=== PATIENT | female | born 1940 | race Caucasian/White ===

== ENCOUNTER 2019-02-19 11:59 | Inpatient (IN) ==
[2019-02-19] MEDS ORDERED: fentaNYL citrate 100 MCG/2 ML VIAL IV STA (12:22)
[2019-02-19 12:36] LABS: Basophils # (auto) 0.02 K/uL (0-0.2); Basophils % (auto) 0.2 %; Eosinophils # (auto) 0.21 K/uL (0-0.5); Eosinophils % (auto) 1.8 %; Hematocrit (blood only) 38.8 % (37-47); Hemoglobin 12.8 g/dL (12.0-16.0); Immature Granulocytes # (auto) 0.03 K/uL (0.00-0.02); Immature Granulocytes % (auto) 0.3 %; Lymphocytes # (auto) 4.77 K/uL (1.2-3.4); Lymphocytes % (auto) 39.8 %; Mean Corpuscular Volume 91.1 fL (80-100); Mean Platelet Volume 9.8 fL (7.4-10.4); Monocytes # (auto) 0.68 K/uL (0.11-0.59); Monocytes % (auto) 5.7 %; Neutrophils # (auto) 6.26 K/uL (1.4-6.5); Neutrophils % (auto) 52.2 %; Platelet Count 246 K/uL (130-400); RDW Coefficient of Variation 13.7 % (11.5-14.5); Red Blood Count 4.26 M/uL (4.2-5.4); White Blood Count 11.97 K/uL (4.8-10.8)
[2019-02-19 12:45] LABS: INR 3.3 (0.9-1.1); Prothrombin Time 31.2 Seconds (9.0-12.0)
[2019-02-19 12:55] LABS: Albumin Level 3.5 gm/dl (3.4-5.0); BUN Creatinine Ratio 13.6 (10-20); Calcium 9.3 mg/dl (8.5-10.1); Creatinine Clr Calc Pharmacy 36.3 ml/min; Est GFR (African American) 49.6; Est GFR (Non-African American) 42.8; Potassium 3.6 mmol/L (3.5-5.1)
[2019-02-19 12:58] LABS: Albumin Globulin Ratio 0.9 (0.9-2); Bilirubin,Total 0.6 mg/dl (0.2-1); Globulin 3.9 gm/dl (2.5-4.0); Total Protein 7.4 gm/dl (6.4-8.2)
--- NOTE | 2019-02-19 13:08 | CT Scan Report ---
CT head/brain wo con CLINICAL HISTORY: 78 years-old Female presenting with fall. TECHNIQUE: Multidetector CT imaging of the head was performed without the use of intravenous contrast . IV contrast: None. One or more dose lowering techniques were used consistent with the principles of ALARA (as low as reasonably achievable), including automatic exposure control, mA or kV adjustment t o individual patient size, and/or use of iterative reconstruction. COMPARISON: None. CT DOSE (mGy.cm): The estimated cumulative dose is 883.84. FINDINGS: Precast Worker topogram: Unremarkable. Ventricles and sulci normal in size. No hemorrhage. Brain parenchyma normal in appearance with preser andrey villar-white differentiation. No acute territorial infarct. No mass effect or midline shift. No ext ra-axial fluid collection. Paranasal sinuses and mastoid air cells clear. Calvarium intact. IMPRESSION: 1. No acute intracranial abnormality. ACT 112: Negative or not required by law. Electronically signed by: Raheel Quiñones M.D. 02/19/2019 1:06 PM
--- NOTE | 2019-02-19 13:10 | CT Scan Report ---
CT cervical spine wo con CT DOSE: 883.84 mGy.cm HISTORY: Trauma fall TECHNIQUE: Multiaxial CT images of the cervical spine were performed and reformatted in the sagittal and coronal plane without the use of contrast. A dose lowering technique was utilized adhering to th e principles of ALARA. COMPARISON: None. FINDINGS: No fractures. No subluxation. Prevertebral soft tissues and the C1-C2 interval are intact. No pneumothorax. Degenerative changes are noted throughout. IMPRESSION: No fractures within the cervical spine. Degenerative change. ACT 112: Negative or not required by law. The above report was generated using voice recognition software. It may contain grammatical, syntax or spelling errors. Electronically signed by: Davis Gallo M.D. 02/19/2019 1:08 PM
--- NOTE | 2019-02-19 13:35 | XRay Report ---
XR pelvis 1-2V routine CLINICAL HISTORY: Left hip pain status post trauma COMPARISON: None. DISCUSSION: There is a displaced comminuted intertrochanteric left hip fracture. The femoral shaft is displaced medially by one full shaft width with respect to the femoral neck. IMPRESSION: Displaced intertrochanteric left hip fracture. ACT 112: Negative or not required by law. Electronically signed by: Isidro Macias M.D. 02/19/2019 1:34 PM
--- NOTE | 2019-02-19 13:35 | XRay Report ---
XR chest 1V portable CLINICAL HISTORY: 78 years-old Female presenting with fall. TECHNIQUE: Portable upright AP view of the chest was obtained. COMPARISON: 11/08/2015. FINDINGS: Atherosclerosis of the aortic arch. Cardiac silhouette enlarged. Lungs may be mildly hyperinflated. N o focal opacity. No large effusion or pneumothorax. Osteopenia may be present. No gross evidence of a n acute osseous injury. Large hiatal hernia. IMPRESSION: 1. Cardiomegaly. No other convincing evidence of acute cardiopulmonary disease. ACT 112: Negative or not required by law. Electronically signed by: Raheel Quiñones M.D. 02/19/2019 1:34 PM
--- NOTE | 2019-02-19 13:38 | XRay Report ---
XR femur LT 2V routine CLINICAL HISTORY: 78 years-old Female presenting with fall, ?frx. TECHNIQUE: Frontal and lateral views of the left femur were obtained. COMPARISON: None. FINDINGS: Mildly comminuted fracture of the left femur predominately in a subtrochanteric location, however, th ere is involvement of the lesser trochanter. The proximal fracture fragment consists of the left femo ral head, neck, and greater trochanter as well as the lateral cortex of the proximal metaphysis. Иван ical fracture fragments may be present within the fracture plane. There is 1 shaft width medial displ acement of the femoral diaphysis. There is also possible minimal foreshortening. Coxa varus angulatio n. Visualized portion of bony pelvis intact. Knee joint intact. Degenerative changes of the knee. Und erlying osteopenia suspected. Atherosclerosis. IMPRESSION: Significantly displaced and mildly comminuted subtrochanteric left femur fracture. ACT 112: Negative or not required by law. Electronically signed by: Raheel Quiñones M.D. 02/19/2019 1:37 PM
--- NOTE | 2019-02-19 14:43 | Communication Note ---
Date of Service: February 19, 2019 HISTORY: Record reviewed. Patient interviewed and examined in ED around 1500. Care coordinated with Joann Tineo PA-C. Please refer to her documentation for complete history. Briefly, 78 YO F with history of chronic atrial fibrillation, diastolic CHF, CKD, and other problems. She slipped on ice today while trying to get into her car and experienced severe left pain. Brought to ED for evaluation where she was found to have a fracture of her left hip. EXAM: General- VS-temp 36.8, pulse 96, respirations 18, BP 165/111 (at 1224) Lungs- clear to auscultation; no respiratory distress Cardiovascular- irregular; no murmur appreciated; no gallop; no JVD; no pretibial edema Abdomen- + bowel sounds, soft, nontender Extremities- LLE shortened and externally rotated; hip pain with flexion or rotation; no cyanosis; no calf tenderness Neuro- alert, Skin- warm & dry DATA: Hemoglobin 12.8, white count 11,970, platelet count 246,000. INR 3.3. Normal electrolytes, BUN 16, creatinine 1.21, random glucose 139. Digoxin level 0.7. Other lab studies as noted. Chest x-ray reviewed by the undersigned and formally interpreted by Radiology- cardiomegaly, large hiatal hernia, no acute process. X-rays of pelvis and left femur demonstrated displaced intertrochanteric fracture of the left hip. CT of head- unremarkable. CT of cervical spine- no fractures or subluxation. EKG performed at 1233 reviewed and demonstrated atrial flutter with variable conduction at 90 / minute, nonspecific T wave abnormalities. ASSESSMENT AND PLAN: LEFT HIP FRACTURE Status post mechanical fall with displaced intertorchanteric frature. Management per Geriatric Hip Fracture protocol. ATRIAL FIBRILLATION / FLUTTER Continue metoprolol and digoxin for rate control. Reverse warfarin with vitamin K. Resume anticoagulation postoperatively when safe from surgical perspective. DIASTOLIC CHF Compensated radiographically. Follow exam / fluid status. Titrate diuretic therapy as needed. HIATAL HERNIA Large hiatal hernia. Continue PPI. Elevate head of bed. Please refer to ILEANA Tineo's documentation for discussion of other issues.
[2019-02-19] MEDS ORDERED: PHYTONADIONE 5 MG TAB PO STA (15:10)
[2019-02-19] MEDS ORDERED: ONDANSETRON INJ 2 MG/ML 2 ML VIAL IV PRN (15:10)
[2019-02-19] MEDS ORDERED: LORATADINE 10 MG TAB PO PRN (15:11)
--- NOTE | 2019-02-19 15:11 | History & Physical Report ---
Date of Service February 19, 2019 Assessment & Plan (1) Fall: (2) Closed left hip fracture: This is a 78-year-old female with a PMH of chronic diastolic heart failure, persistent atrial fibrillation on anticoagulation, CKD III and other medical problems listed below who presents from home after a fall and was found to have a left femur fracture. -S/p mechanical fall slipping on ice, femur XR with evidence of significantly displaced and mildly comminuted subtrochanteric left femur fracture -[facility] orthopedics consulted as well as anesthesiology. Pain control, IV fluids, preop antibiotics ordered per protocol. Traction ordered. NPO at midnight -INR supratherapeutic at 3.3- last dose taken yesterday at 1600. Given 2.5mg PO Vitamin K for reversal with INR recheck this evening at 2100 -Pre-op: history of persistent A fib - currently rate controlled at 85 bpm, CXR with cardiomegaly, no acute changes -Per revised cardiac risk index for pre-op risk, patient with class II risk - 6% of major cardiac event (3) CHI (closed head injury): Does not remember whether or not she hit her head but felt that patient was briefly confused following fall -CT head, cervical spine CT without acute abnormalities -Currently A&O x4. Monitor closely, neuro checks (4) Persistent atrial fibrillation: Rate controlled with HR of 85 -Continue Toprol, digoxin -Holding coumadin in setting of supratherapeutic INR pre-operatively. Trend INR (5) Chronic diastolic heart failure: Appears euvolemic clinically, on CXR -Monitor volume status closely -Home diuretics schedule of Lasix 20mg Q2D - due tomorrow but will plan to hold pre-operatively (6) Hiatal hernia: Continue protonix 40mg BID, elevate head of bed DVT Ppx: Holding coumadin preoperatively. SCDs Code status: FULL PCP: Leonel García Dispo: Admitted to PCU. Discharge planning ordered. Patient seen in collaboration with Dr. Marcelino. Please see addendum. History of Present Illness Chief Complaint: Fall, left hip pain Primary Care Provider: NO PCP This is a 78-year-old female with a PMH of chronic diastolic heart failure, persistent atrial fibrillation on anticoagulation, CKD III and other medical problems listed below who presents from home after a fall. Patient was walking to her car in the driveway when she slipped and fell on the ice, landing on her left side. Is not sure if she hit her head or not but did not lose consciousness. Was unable to get anyone's attention so she crawled to her front door and rang the doorbell and her called EMS. Patient states the pain is severe with any type of movement but minimal at rest. Denies any numbness or paresthesias distal to area of pain in left upper leg/hip. Denies any fever, chills, lightheadedness, visual changes, chest pain, palpitations, shortness of breath, nausea, vomiting, abdominal pain, dysuria, diarrhea or constipation. Is on Coumadin for persistent atrial fibrillation, last taken yesterday around 1600. In ED, patient found to be hypertensive initially with BP 165/117. CT head, cervical spine CT without acute abnormalities. CXR with cardiomegaly. Left femur x-ray with significantly displaced and mildly comminuted subtrochanteric left femur fracture. Denies any previous surgical history. Allergies Allergy/AdvReac Type Severity Reaction Status Date / Time No Known Allergies Allergy Unverified 02/19/19 14:12 Home Medications Home Medications Medication Instructions Recorded Confirmed Type atorvastatin 20 mg PO HS 02/19/19 02/19/19 History digoxin 125 mcg PO MOTUWETHFR@2100 02/19/19 02/19/19 History furosemide 20 mg PO Q2D 02/19/19 02/19/19 History lisinopril 2.5 mg PO QAM 02/19/19 02/19/19 History loratadine [Claritin] 10 mg PO HS PRN 02/19/19 02/19/19 History magnesium oxide 400 mg PO HS 02/19/19 02/19/19 History metoprolol succinate 100 mg PO QAM 02/19/19 02/19/19 History multivit with min-folic acid [One 0.4 mg PO QDL 02/19/19 02/19/19 History Daily Womens 50 Plus] pantoprazole 40 mg PO BID 02/19/19 02/19/19 History potassium chloride [Klor-Con M20] 20 meq PO Q2D 02/19/19 02/19/19 History warfarin 1.25 mg PO SUTUWETHSA@1600 02/19/19 02/19/19 History warfarin 2.5 mg PO MOFR@1600 02/19/19 02/19/19 History Past Med/Surg History Medical History (Updated 02/19/19 @ 17:32 by Joann Tineo PA-C) Chronic diastolic heart failure (Chronic) CKD (chronic kidney disease), stage III Dementia Hiatal hernia (Chronic) Mild aortic regurgitation Mild mitral valve regurgitation Mild tricuspid valve regurgitation Persistent atrial fibrillation (Chronic) Surgical History No pertinent past surgical history Family History Mother Brain cancer Other Atrial fibrillation Social History Preferred Language: Spanish Communication Ability: Effective Beliefs That Will Affect Care: None Current Living Situation: Spouse Other Information That Helps Us Care for You: No Feels Safe at Home: Yes Safety Concerns: Feels Safe At This Time Smoking Status: Former smoker Hx Alcohol Use: No Hx Substance Use: No Review of Systems Review of Systems: At least ten systems reviewed and negative except as noted in the HPI. Physical Exam Physical Exam: General Appearance: WD/WN, vitals as above, NAD, lying in bed, grimacing in pain with any movement, conversing easily Head: normocephalic, atraumatic Eyes: normal inspection, PERRL, conjunctivae normal, anicteric sclerae ENT: external ear and nose normal, oropharynx normal Neck: trachea midline, no thyromegaly normal visual inspection Respiratory: normal respiratory effort, lungs clear to auscultation, no wheeze, rales, rhonchi. Normal insp/exp effort, no accessory muscle use Cardiovascular: irregular rate & rhythm, no murmur appreciated, normal peripheral pulses. Vessels: no JVD or carotid bruit Chest: normal inspection of chest Abdomen/GI: normal bowel sounds, soft, nontender, no hepatosplenomegaly Extremities/Musculoskelatal: + LLE externally rotated and shortened. Tenderness to palpation of lateral left thigh. No cyanosis or clubbing, extremities motor strength 5/5 Neurologic: PERRL, EOMI, accommodation nl, no face palsy, no dysarthria, CN's II-XI intact bilaterally and moves all extremities Psychiatric: A+Ox3, euthymic affect Skin: no rashes, normal color, warm/dry Results & Data Vital Signs (Past 12 Hours) Vital Signs Temp Pulse Resp BP Pulse Ox 02/19/19 12:24 96 02/19/19 12:09 36.8 C 96 H 18 165/111 H 96 Laboratory Results Short CBC 02/19/19 Range/Units 12:18 WBC 11.97 H (4.8-10.8) K/uL Hgb 12.8 (12.0-16.0) g/dL Hct 38.8 (37-47) % Plt Count 246 (130-400) K/uL BMP 02/19/19 12:18 Sodium 140 Potassium 3.6 Chloride 106 Carbon Dioxide 26 BUN 16 Creatinine 1.21 H Glucose 139 H Calcium 9.3 Liver Function 02/19/19 Range/Units 12:18 Total Bilirubin 0.6 (0.2-1) mg/dl AST 19 (15-37) U/L ALT 20 (12-78) U/L Alkaline Phosphatase 129 H (45-117) U/L Albumin 3.5 (3.4-5.0) gm/dl Urine 02/19/19 Range/Units 15:30 Urine Color Yellow Urine Appearance Clear (Clear) Urine pH 7.5 (4.5-7.5) Ur Specific [place] 1.012 (1.000-1.030) Urine Protein Negative (Negative) Urine Glucose (UA) Negative (Negative) Diagnostic Findings CT head: IMPRESSION: 1. No acute intracranial abnormality. Cervical spine CT: IMPRESSION: No fractures within the cervical spine. Degenerative change. CXR: IMPRESSION: 1. Cardiomegaly. No other convincing evidence of acute cardiopulmonary disease. L Femur XR: IMPRESSION: Significantly displaced and mildly comminuted subtrochanteric left femur fracture. Pelvix XR: IMPRESSION: Displaced intertrochanteric left hip fracture. ECG Rhythm: atrial flutter Code Status & VTE Plan VTE Prophylaxis Plan VTE Prophylaxis will be ordered: Yes Supervising Physician Co-Signing Physician Notes HISTORY: Record reviewed. Patient interviewed and examined in ED around 1500. Care coordinated with Joann Tineo PA-C. Please refer to her documentation for complete history. Briefly, 78 YO F with history of chronic atrial fibrillation, diastolic CHF, CKD, and other problems. She slipped on ice today while trying to get into her car and experienced severe left pain. Brought to ED for evaluation where she was found to have a fracture of her left hip. EXAM: General- VS-temp 36.8, pulse 96, respirations 18, BP 165/111 (at 1224) Lungs- clear to auscultation; no respiratory distress Cardiovascular- irregular; no murmur appreciated; no gallop; no JVD; no pretibial edema Abdomen- + bowel sounds, soft, nontender Extremities- LLE shortened and externally rotated; hip pain with flexion or rotation; no cyanosis; no calf tenderness Neuro- alert, Skin- warm & dry DATA: Hemoglobin 12.8, white count 11,970, platelet count 246,000. INR 3.3. Normal electrolytes, BUN 16, creatinine 1.21, random glucose 139. Digoxin level 0.7. Other lab studies as noted. Chest x-ray reviewed by the undersigned and formally interpreted by Radiology- cardiomegaly, large hiatal hernia, no acute process. X-rays of pelvis and left femur demonstrated displaced intertrochanteric fracture of the left hip. CT of head- unremarkable. CT of cervical spine- no fractures or subluxation. EKG performed at 1233 reviewed and demonstrated atrial flutter with variable conduction at 90 / minute, nonspecific T wave abnormalities. ASSESSMENT AND PLAN: LEFT HIP FRACTURE Status post mechanical fall with displaced intertorchanteric frature. Management per Geriatric Hip Fracture protocol. ATRIAL FIBRILLATION / FLUTTER Continue metoprolol and digoxin for rate control. Reverse warfarin with vitamin K. Resume anticoagulation postoperatively when safe from surgical perspective. DIASTOLIC CHF Compensated radiographically. Follow exam / fluid status. Titrate diuretic therapy as needed. HIATAL HERNIA Large hiatal hernia. Continue PPI. Elevate head of bed. Please refer to ILEANA Tineo's documentation for discussion of other issues. (1) CHI (closed head injury) Encounter type: initial encounter Qualified Code(s): S09.90XA - Unspecified injury of head, initial encounter (2) Fall Encounter type: initial encounter Qualified Code(s): W19.XXXA - Unspecified fall, initial encounter (3) Closed left hip fracture Encounter type: initial encounter Qualified Code(s): S72.002A - Fracture of unspecified part of neck of left femur, initial encounter for closed fracture
[2019-02-19 15:47] LABS: Appearance Urine Clear (Clear); Bilirubin Urine Negative (Negative); Blood Urine Negative (Negative); Color Urine Yellow; Glucose Urine UA Negative (Negative); Ketones Urine Negative (Negative); Leukocyte Esterase Urine Negative (Negative); Nitrite Urine Negative (Negative); Protein Urine Negative (Negative); Specific Gravity Urine 1.012 (1.000-1.030); Urobilinogen Urine Negative (Negative); pH Urine 7.5 (4.5-7.5)
[2019-02-19] MEDS: HYDROmorphone INJ 0.5 MG/0.5 ML SYR IV PRN (16:08)
--- NOTE | 2019-02-19 17:08 | Emergency Department Note ---
Entered by Viviane Santiago acting as a scribe for Bismark Dobbs M.D. History of Present Illness General Chief complaint: Fall Stated complaint: fall/ L hip pain Time Seen by Provider: 02/19/19 12:09 Source: patient and family History of Present Illness Onset (ago): hour(s) less than 1 Location: head (Fall) Pain Consistency: + other (episode) Quality: + other (fall) Exacerbated By: + movement Associated symptoms: + confusion and + other (Positive fall, left hip pain. Negative neck pain, abdominal pain.); no headaches, no nausea/vomiting and no shortness of breath Treatments prior to arrival: none The patient is a 78 year old female presenting to the Emergency Department complaining of an episode of a fall occurring less than 1 hour ago. The patient reports that she fell on ice in her driveway. She states that she landed on her left side and that her left hip is painful. She explains that moving her left leg worsens her pain. The patients notes that the patient hit her head upon her fall and was slightly confused after getting up from her fall but that this confusion has resolved and she is at her baseline. He notes that the patient follows with Dr. Gideon Lewis assistant case manager. 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 She states that she regularly takes a blood thinner. She denies headache, neck pain, shortness of breath, abdominal pain, nausea and vomiting. Home Medications Home Medications Medication Instructions Recorded Confirmed Type atorvastatin 20 mg PO HS 02/19/19 02/19/19 History digoxin 125 mcg PO MOTUWETHFR@2100 02/19/19 02/19/19 History furosemide 20 mg PO Q2D 02/19/19 02/19/19 History lisinopril 2.5 mg PO QAM 02/19/19 02/19/19 History loratadine [Claritin] 10 mg PO HS PRN 02/19/19 02/19/19 History magnesium oxide 400 mg PO HS 02/19/19 02/19/19 History metoprolol succinate 100 mg PO QAM 02/19/19 02/19/19 History multivit with min-folic acid [One 0.4 mg PO QDL 02/19/19 02/19/19 History Daily Womens 50 Plus] pantoprazole 40 mg PO BID 02/19/19 02/19/19 History potassium chloride [Klor-Con M20] 20 meq PO Q2D 02/19/19 02/19/19 History warfarin 1.25 mg PO SUTUWETHSA@1600 02/19/19 02/19/19 History warfarin 2.5 mg PO MOFR@1600 02/19/19 02/19/19 History Allergies Allergy/AdvReac Type Severity Reaction Status Date / Time No Known Allergies Allergy Unverified 02/19/19 14:12 Past Med/Surg History Medical History (Updated 02/19/19 @ 17:08 by Bismark Dobbs M.D.) Atrial fibrillation with RVR Dementia Surgical History No pertinent past surgical history Social History Preferred Language: Yoruba Communication Ability: Effective Beliefs That Will Affect Care: None Current Living Situation: Spouse Other Information That Helps Us Care for You: No Feels Safe at Home: Yes Safety Concerns: Feels Safe At This Time Smoking Status: Never smoker Hx Alcohol Use: No Hx Substance Use: No Review of Systems See HPI for pertinent positives & negatives. and A total of 10 systems reviewed and were otherwise negative Physical Exam Vital Signs Vital Signs - 24 hr 02/19/19 12:03 02/19/19 12:09 02/19/19 12:16 Temperature 36.8 C Temperature Source Oral Pulse Rate 95 H 96 H 101 H Respiratory Rate 16 18 18 Blood Pressure 165/117 H 165/111 H Blood Pressure Mean 121 129 Pulse Oximetry 96 Oxygen Delivery Method Room Air Sepsis Recent Fever Within 48 Hours No Sepsis New/Unexplained Change in Mental Status No Sepsis Action Taken by Nursing No Action Required 02/19/19 12:24 02/19/19 12:30 02/19/19 13:00 Temperature Temperature Source Pulse Rate 97 H 87 Respiratory Rate 17 18 Blood Pressure Blood Pressure Mean Pulse Oximetry 96 Oxygen Delivery Method Room Air Sepsis Recent Fever Within 48 Hours Sepsis New/Unexplained Change in Mental Status Sepsis Action Taken by Nursing GENERAL: Patient appears uncomfortable. Awake, alert, in no distress HENT: Normocephalic, atraumatic. Oropharynx unremarkable. EYES: Normal conjunctiva. Sclera non-icteric. PERRL. NECK: Supple. No nuchal rigidity. RESPIRATORY: Clear to auscultation. No wheezes. Normal respiratory effort. CARDIAC: Normal rate. Normal rhythm. Extremities warm and well perfused. GI: Soft, non-distended. No tenderness to palpation. No rebound or guarding. No masses. RECTAL: Deferred. MUSCULOSKELETAL: Left hip tenderness pain with Rom. NVI LLE. Chest examination reveals no tenderness. There is no CVA tenderness to palpation. LOWER EXTREMITIES: Calves are equal size bilaterally and non-tender. No edema NEURO: Normal sensorium. No sensory or motor deficits noted. No facial droop. SKIN: Warm and dry. No rash or jaundice noted. Course Course 1220: The patient was evaluated in room B12B, and a complete history and physical examination were performed. 1346: I reevaluated the patient at this time. 1351: Orthopedics lubrication worker paged. 1353: I discussed the patients case with Joann Tineo PA-C. Dr. R[facility] hospitalist will evaluate the patient for further management. Administered Medications Hydromorphone HCl (Dilaudid) 0.25 mg IV Q30M PRN PRN Reason: Moderate/Severe Pain Stop: 03/05/19 15:09 Last Admin: 02/19/19 16:08 Dose: 0.25 mg Documented by: [id number] Discontinued Medications Fentanyl Citrate (Fentanyl Citrate) 50 mcg IV NOW STA Stop: 02/19/19 12:23 Last Admin: 02/19/19 12:31 Dose: 50 mcg Documented by: [id number] Phytonadione (Mephyton) 2.5 mg PO NOW STA Stop: 02/19/19 15:11 Last Admin: 02/19/19 15:25 Dose: 2.5 mg Documented by: [id number] Medical Decision Making Differential Diagnosis Differential diagnoses include major intracranial, cervical, spinal, thoracic, abdominal, pelvic and neurologic injury. Fracture, contusion, sprain, strain, laceration, abrasions included as well. Medical Records Attestation: I reviewed the patient's medical records. Home Medications Current Medication List: was personally reviewed by me Laboratory Data Attestation: I reviewed the patient's lab results. Result diagrams: 02/19/19 12:18 02/19/19 12:18 Lab Results 02/19/19 02/19/19 02/19/19 Range/Units 12:18 12:18 12:18 WBC 11.97 H (4.8-10.8) K/uL RBC 4.26 (4.2-5.4) M/uL Hgb 12.8 (12.0-16.0) g/dL Hct 38.8 (37-47) % MCV 91.1 (80-100) fL MCH 30.0 (25-34) pg MCHC 33.0 (32-36) g/dL RDW Std Deviation 45.0 (36.4-46.3) fL RDW Coeff of Adelfo 13.7 (11.5-14.5) % Plt Count 246 (130-400) K/uL MPV 9.8 (7.4-10.4) fL Immature Gran % (Auto) 0.3 % Neut % (Auto) 52.2 % Lymph % (Auto) 39.8 % [place] % (Auto) 5.7 % Eos % (Auto) 1.8 % Baso % (Auto) 0.2 % Immature Gran # (Auto) 0.03 H (0.00-0.02) K/uL Neut # (Auto) 6.26 (1.4-6.5) K/uL Lymph # (Auto) 4.77 H (1.2-3.4) K/uL [place] # (Auto) 0.68 H (0.11-0.59) K/uL Eos # (Auto) 0.21 (0-0.5) K/uL Baso # (Auto) 0.02 (0-0.2) K/uL PT 31.2 H (9.0-12.0) Seconds INR 3.3 H (0.9-1.1) Sodium 140 (136-145) mmol/L Potassium 3.6 (3.5-5.1) mmol/L Chloride 106 (98-107) mmol/L Carbon Dioxide 26 (21-32) mmol/L Anion Gap 7.0 (3-11) BUN 16 (7-18) mg/dl Creatinine 1.21 H (0.6-1.2) mg/dl Est Cr Clr Drug Dosing 36.3 ml/min Est GFR ( Amer) 49.6 Est GFR (Non-Af Amer) 42.8 BUN/Creatinine Ratio 13.6 (10-20) Glucose 139 H (70-99) mg/dl Calcium 9.3 (8.5-10.1) mg/dl Total Bilirubin 0.6 (0.2-1) mg/dl AST 19 (15-37) U/L ALT 20 (12-78) U/L Alkaline Phosphatase 129 H (45-117) U/L Total Protein 7.4 (6.4-8.2) gm/dl Albumin 3.5 (3.4-5.0) gm/dl Globulin 3.9 (2.5-4.0) gm/dl Albumin/Globulin Ratio 0.9 (0.9-2) Digoxin (0.8-2.0) ng/ml 02/19/19 Range/Units 12:18 WBC (4.8-10.8) K/uL RBC (4.2-5.4) M/uL Hgb (12.0-16.0) g/dL Hct (37-47) % MCV (80-100) fL MCH (25-34) pg MCHC (32-36) g/dL RDW Std Deviation (36.4-46.3) fL RDW Coeff of Adelfo (11.5-14.5) % Plt Count (130-400) K/uL MPV (7.4-10.4) fL Immature Gran % (Auto) % Neut % (Auto) % Lymph % (Auto) % [place] % (Auto) % Eos % (Auto) % Baso % (Auto) % Immature Gran # (Auto) (0.00-0.02) K/uL Neut # (Auto) (1.4-6.5) K/uL Lymph # (Auto) (1.2-3.4) K/uL [place] # (Auto) (0.11-0.59) K/uL Eos # (Auto) (0-0.5) K/uL Baso # (Auto) (0-0.2) K/uL PT (9.0-12.0) Seconds INR (0.9-1.1) Sodium (136-145) mmol/L Potassium (3.5-5.1) mmol/L Chloride (98-107) mmol/L Carbon Dioxide (21-32) mmol/L Anion Gap (3-11) BUN (7-18) mg/dl Creatinine (0.6-1.2) mg/dl Est Cr Clr Drug Dosing ml/min Est GFR ( Amer) Est GFR (Non-Af Amer) BUN/Creatinine Ratio (10-20) Glucose (70-99) mg/dl Calcium (8.5-10.1) mg/dl Total Bilirubin (0.2-1) mg/dl AST (15-37) U/L ALT (12-78) U/L Alkaline Phosphatase (45-117) U/L Total Protein (6.4-8.2) gm/dl Albumin (3.4-5.0) gm/dl Globulin (2.5-4.0) gm/dl Albumin/Globulin Ratio (0.9-2) Digoxin 0.7 L (0.8-2.0) ng/ml Imaging Data Radiologist's Impression: Radiology results as stated below per my review and the radiologist's interpretation: CT head/brain wo con CLINICAL HISTORY: 78 years-old Female presenting with fall. TECHNIQUE: Multidetector CT imaging of the head was performed without the use of intravenous contrast. IV contrast: None. One or more dose lowering techniques were used consistent with the principles of ALARA (as low as reasonably achievable), including automatic exposure control, mA or kV adjustment to alexander vidual patient size, and/or use of iterative reconstruction. COMPARISON: None. CT DOSE (mGy.cm): The estimated cumulative dose is 883.84. FINDINGS: Mirror Fabrication Supervisor topogram: Unremarkable. Ventricles and sulci normal in size. No hemorrhage. Brain parenchyma normal in appearance with preserved villar-white differentiation. No acute territorial infarct. No mass effect or midline shift. No extra-axial fluid collection. Paranasal sinuses and mastoid air cells clear. Calvarium intact. IMPRESSION: 1. No acute intracranial abnormality. ACT 112: Negative or not required by law. Electronically signed by: Raheel Quiñones M.D. 02/19/2019 1:[address] cervical spine wo con CT DOSE: 883.84 mGy.cm HISTORY: Trauma fall TECHNIQUE: Multiaxial CT images of the cervical spine were performed and reformatted in the sagittal and coronal plane without the use of contrast. A dose lowering technique was utilized adhering to the principles of ALARA. COMPARISON: None. FINDINGS: No fractures. No subluxation. Prevertebral soft tissues and the C1-C2 interval are intact. No pneumothorax. Degenerative changes are noted throughout. IMPRESSION: No fractures within the cervical spine. Degenerative change. ACT 112: Negative or not required by law. The above report was generated using voice recognition software. It may contain grammatical, syntax or spelling errors. Electronically signed by: Davis Gallo M.D. 02/19/2019 1:08 PM XR chest 1V portable CLINICAL HISTORY: 78 years-old Female presenting with fall. TECHNIQUE: Portable upright AP view of the chest was obtained. COMPARISON: 11/08/2015. FINDINGS: Atherosclerosis of the aortic arch. Cardiac silhouette enlarged. Lungs may be mildly hyperinflated. No focal opacity. No large effusion or pneumothorax. Osteopenia may be present. No gross evidence of an acute osseous injury. Large hiatal hernia. IMPRESSION: 1. Cardiomegaly. No other convincing evidence of acute cardiopulmonary disease. ACT 112: Negative or not required by law. Electronically signed by: Raheel Quiñones M.D. 02/19/2019 1:34 PM XR pelvis 1-2V routine CLINICAL HISTORY: Left hip pain status post trauma COMPARISON: None. DISCUSSION: There is a displaced comminuted intertrochanteric left hip fracture. The femoral shaft is displaced medially by one full shaft width with respect to the femoral neck. IMPRESSION: Displaced intertrochanteric left hip fracture. ACT 112: Negative or not required by law. Electronically signed by: Isidro Macias M.D. 02/19/2019 1:34 PM XR femur LT 2V routine CLINICAL HISTORY: 78 years-old Female presenting with fall, ?frx. TECHNIQUE: Frontal and lateral views of the left femur were obtained. COMPARISON: None. FINDINGS: Mildly comminuted fracture of the left femur predominately in a subtrochanteric location, however, there is involvement of the lesser trochanter. The proximal fracture fragment consists of the left femoral head, neck, and greater t rochanter as well as the lateral cortex of the proximal metaphysis. Cortical fracture fragments may be present within the fracture plane. There is 1 shaft width medial displacement of the femoral diaphysis. There is also possible minimal foreshortening. Coxa varus angulation. Visualized portion of bony pelvis intact. Knee joint intact. Degenerative changes of the knee. Underlying osteopenia suspected. Atherosclerosis. IMPRESSION: Significantly displaced and mildly comminuted subtrochanteric left femur fracture. ACT 112: Negative or not required by law. Electronically signed by: Raheel Quiñones M.D. 02/19/2019 1:37 PM ECG Data Attestation: I personally reviewed and interpreted this ECG as follows: Indication: + other (Fall/trauma) Rate (beats per minute): 94 Rhythm: + atrial flutter ECG ST segments: no ST depression and no ST elevation Comparison ECG Date: from (11/07/15) Change: the following changes noted (Patient now in a flutter.) Blood Pressure Blood Pressure Findings: Elevated blood pressure Blood Pressure Disposition: further management by hospitalist JOSE ANGEL Narrative Patient is a 78-year-old female history of atrial fibrillation maintained on digoxin, and Coumadin as well as a history of hypertension presenting today after a slip and fall in her driveway this morning. Fell onto the left side complaining of severe left hip pain with movement. Neurovascular intact distally. Patient is unsure seeing her head but states she was dazed and confused for 5 to 10 minutes but now is alert and oriented. GCS currently 15. Eyes are Perrl. No evidence significant trauma of the upper extremities, torso, neck, or head. Given the fall and her Coumadin usage however CT the head and cervical spine were completed. Negative for acute injury. Questions mild c oncussion/CHI. Pelvis x-ray and hip x-ray obtained. Basic labs obtained. INR slightly elevated 3.3 today. Slight leukocytosis likely reactive. Given some fentanyl initially for pain. It appears that the patient sustained a fracture of her left hip. Patient require admission for surgical repair. Orthopedics alerted to the patient via page. [facility] hospitalist was contacted for the admission. Impression & Plan Fall, Closed left hip fracture, CHI (closed head injury) Discharge Plan Visit Data Chief Complaint: Fall Stated Complaint: fall/ L hip pain ED Provider: Bismark Dobbs Discharge Problem: Fall, Closed left hip fracture, CHI (closed head injury) Patient Disposition: Being Evaluated by Hospitalist Discharge Instructions Interventions: ED Discharge Assessment Last Done: 02/19/19 16:24 Discharge Problem: Fall Qualifiers: Encounter type: initial encounter Qualified Code(s): W19.XXXA - Unspecified f all, initial encounter Closed left hip fracture Qualifiers: Encounter type: initial encounter Qualified Code(s): S72.002A - Fracture of unspecified part of neck of left femur, initial encounter for closed fracture CHI (closed head injury) Qualifiers: Encounter type: initial encounter Qualified Code(s): S09.90XA - Unspecified injury of head, initial encounter The scribe's documentation has been prepared under my direction and personally reviewed by me in its entirety. I confirm that the note above accurately reflects all work, treatment, procedures, and medical decision making performed by me.
[2019-02-19] MEDS ORDERED: MAGNESIUM HYDROXIDE SUSP 30 ML UDC PO PRN (17:12)
[2019-02-19] MEDS ORDERED: ACETAMINOPHEN 325 MG TAB PO PRN (17:12)
[2019-02-19] MEDS ORDERED: NALOXONE HCL 0.4 MG/1 ML VIAL/CARP IV PRN (17:12)
[2019-02-19] MEDS ORDERED: bisacodyL 10 MG SUPP PR PRN (17:12)
[2019-02-19] MEDS: SODIUM CHLORIDE 0.9% 1000ML 1,000 ML IV SCH (18:01)
[2019-02-19] MEDS: ONDANSETRON INJ 2 MG/ML 2 ML VIAL IV PRN (18:01)
[2019-02-19] MEDS: DIGOXIN 0.125 MG TAB PO SCH (20:50)
[2019-02-19] MEDS: ATORVASTATIN 20 MG TAB PO SCH (20:50)
[2019-02-19] MEDS: MAGNESIUM OXIDE 400 MG TAB PO SCH (20:51)
[2019-02-19] MEDS: PANTOprazole 40 MG TAB PO SCH (20:51)
[2019-02-19] MEDS: DOCUSATE SODIUM/SENNA 50/8.6MG TAB PO SCH (20:52)
[2019-02-19 21:18] LABS: INR 2.8 (0.9-1.1); Prothrombin Time 26.7 Seconds (9.0-12.0)
[2019-02-19] MEDS ORDERED: PHYTONADIONE 5 MG TAB PO ONE (22:05)
[2019-02-19] MEDS ORDERED: PHYTONADIONE 2.5 MG in SODIUM CHLORIDE 0.9% 50 ML IV ONE (23:09)
[2019-02-20] MEDS: HYDROmorphone INJ 0.5 MG/0.5 ML SYR IV PRN ×4 (01:16→21:49)
[2019-02-20 05:35] LABS: Hematocrit (blood only) 32.7 % (37-47); Hemoglobin 10.8 g/dL (12.0-16.0); Mean Corpuscular Hemoglobin 30.2 pg (25-34); Mean Corpuscular Volume 91.3 fL (80-100); Mean Platelet Volume 9.6 fL (7.4-10.4); Platelet Count 225 K/uL (130-400); RDW Coefficient of Variation 13.7 % (11.5-14.5); RDW Standard Deviation 45.4 fL (36.4-46.3); Red Blood Count 3.58 M/uL (4.2-5.4); White Blood Count 11.11 K/uL (4.8-10.8)
[2019-02-20 05:43] LABS: INR 2.4 (0.9-1.1)
[2019-02-20] MEDS: SODIUM CHLORIDE 0.9% 1000ML 1,000 ML IV SCH (05:50)
[2019-02-20] MEDS ORDERED: CEFAZOLIN 2000MG 2,000 MG/15 ML SYR IV SCH (06:00)
--- NOTE | 2019-02-20 06:10 | Electrocardiogram Report ---
Test Reason : Blood Pressure : / mmHG Vent. Rate : 094 BPM Atrial Rate : 326 BPM P-R Int : 000 ms QRS Dur : 076 ms QT Int : 336 ms P-R-T Axes : 000 086 044 degrees QTc Int : 420 ms Atrial fibrillation Nonspecific T wave abnormality Abnormal ECG When compared with ECG of 10-NOV-2015 06:55, Nonspecific T wave abnormality now evident in Anterior leads Confirmed by Arturo Tan ([id number]) on 02/20/2019 6:09:52 AM Referred By: REFERRED SELF Confirmed By:Arturo Tan
[2019-02-20 06:23] LABS: BUN Creatinine Ratio 16.6 (10-20); Calcium 8.6 mg/dl (8.5-10.1); Creatinine Clr Calc Pharmacy 45.7 ml/min; Est GFR (Non-African American) 60.4
[2019-02-20] MEDS ORDERED: PHYTONADIONE 2.5 MG in SODIUM CHLORIDE 0.9% 50 ML IV ONE (06:45)
[2019-02-20] MEDS: METOPROLOL SUCC 50MG EXT REL TAB PO SCH (08:03)
[2019-02-20] MEDS: PANTOprazole 40 MG TAB PO SCH ×3 (08:05→21:42)
--- NOTE | 2019-02-20 08:59 | Hospitalist Progress Note ---
Date of Service February 20, 2019 Assessment & Plan (1) Fall: (2) Closed left hip fracture: This is a 78-year-old female with a PMH of chronic diastolic heart failure, persistent atrial fibrillation on anticoagulation, CKD III and other medical problems listed below who presents from home after a fall and was found to have a left femur fracture. -S/p mechanical fall slipping on ice, femur XR with evidence of significantly displaced and mildly comminuted subtrochanteric left femur fracture -[facility] orthopedics consulted as well as anesthesiology. Pain control, IV fluids, preop antibiotics ordered per protocol. Traction ordered. NPO at midnight -INR supratherapeutic at 3.3- last dose taken yesterday at 1600. Given 2.5mg PO Vitamin K for reversal with INR recheck this evening at 2100 -Pre-op: history of persistent A fib - currently rate controlled at 85 bpm, CXR with cardiomegaly, no acute changes -Per revised cardiac risk index for pre-op risk, patient with class II risk - 6% of major cardiac event (3) CHI (closed head injury): Does not remember whether or not she hit her head but felt that patient was briefly confused following fall -CT head, cervical spine CT without acute abnormalities -Currently A&O x4. Monitor closely, neuro checks (4) Persistent atrial fibrillation: Rate controlled with HR of 85 -Continue Toprol, Digoxin -Holding Coumadin in setting of supratherapeutic INR pre-operatively. Trend INR (5) Chronic diastolic heart failure: Appears euvolemic clinically, on CXR -Monitor volume status closely -Home diuretics schedule of Lasix 20mg Q2D - due tomorrow but will plan to hold pre-operatively (6) Hiatal hernia: Continue PPI, elevate head of bed DVT Ppx: Holding Coumadin preoperatively. SCDs Code status: FULL PCP: Leonel García Dispo: PCU. Discharge planning ordered. Labs Checked ROS-No Headache, No Visual Changes, No Nausea, No Vomiting, No Fever, No Chills, No Neck Pain or Stiffness, No Chest Pain, No Palpitations, No SOB, No BILLINGS[place], No Cough, No Sputum, No Wheezing, No Abdominal Pain, No Diarrhea, No Hematemesis, No Hemoptysis, No Unexpected Weight Loss, No Flank pain, No Melena, No Hematochezia, No Frequency, No Urgency, No Burning, No Hematuria, No Rashes, No Diaphoresis. Appetite is Normal Physical Exam Gen-AAO x 3, NAD, Afebrile Head-NCAT, EOMI, PERRLA, Anicteric Sclera, No Posterior Pharyngeal Erythema Neck-Supple, No JVD, No Thyromegaly, No Masses, No LAD, No Bruits Lungs-Clear to Auscultation Bilaterally, No Rales, No Rhonchi, No Wheezing, No Crepitus Chest-No S4, +S1, +S2, No S3, No Murmurs, No Rubs, No Gallops, No Ectopy Abdomen-Soft, Bowel Sounds Present, Non Tender, Non Distended, No Hepatomegaly, No Splenomegaly, No Palpable Masses, No Rebound, No Rigidity, No Guarding Musculoskeletal-Full Range of Motion Bilaterally, No CVAT Extremities-No Cyanosis, No Clubbing, No Edema, Leg in traction Nuero-Cranial Nerves II-XII grossly intact, Motor WNL, DTRs WNL, Strength WNL, Non Focal Psych-Normal Mood Results & Data Vital Signs (Past 12 Hours) Vital Signs Temp Pulse Pulse Resp BP Pulse Ox 02/20/19 08:00 36.4 C L 92 H 17 115/75 94 02/20/19 02:47 36.7 C 85 18 98/73 L 96 02/20/19 00:00 103 H 02/19/19 23:47 36.5 C 94 H 18 103/66 96 (1) Fall Encounter type: initial encounter Qualified Code(s): W19.XXXA - Unspecified fall, initial encounter (2) Closed left hip fracture Encounter type: initial encounter Qualified Code(s): S72.002A - Fracture of unspecified part of neck of left femur, initial encounter for closed fracture (3) CHI (closed head injury) Encounter type: initial encounter Qualified Code(s): S09.90XA - Unspecified injury of head, initial encounter
[2019-02-20 10:25] LABS: INR 1.6 (0.9-1.1); Prothrombin Time 15.7 Seconds (9.0-12.0)
--- NOTE | 2019-02-20 11:12 | Orthopedic Consultation ---
Date of Consultation February 20, 2019 Assessment & Plan (1) Displaced subtrochanteric fracture of left femur: Patient is on chronic Coumadin and initially was 3.3 INR upon arrival. With administration of vitamin K she is now down to 1.6. I discussed this case with Dr. Crow. Orthopedics will need the INR to be 1.5 or less for surgery. Anesthesia has been consulted to determine whether she will be a candidate for spinal anesthesia versus general. Dr. Crow has ordered 2 units of FFP continue to help lower the INR down. I discussed this case with Dr. Gomez. He has reviewed the films and plans will be for a left trochanteric femoral nailing. Plan for OR today if INR is in acceptable range for anesthesia and orthopedics. History of Present Illness Reason for Consultation: Left subtrochanteric femur fracture Attending Physician: Richard Crow, DO History of Present Illness Patient is a 78-year-old white female who was admitted by [facility] service for a left subtrochanteric femur fracture. Patient was apparently walking out to her car yesterday and slipped on the ice and fell. She fell onto her left side and had immediate pain. She feels she did not hit her head and states that she did not lose consciousness. She tried to call for help and when nobody came, she crawled up to her steps and rang the doorbell. Her found her on the steps and called EMS. She was brought to the emergency room here and she was seen by the staff. X-rays were taken. It was found that she had a subtrochanteric femur fracture of the left femur. CT of her head and neck showed no acute injury. She was admitted under the [facility] and they have asked us to take care of her left femur fracture. Currently she is in no acute distress. He states that she is having pain off and on with the left femur fracture. She essentially denies pain anywhere else although she does state her left hand is little sore after trying to break her fall. Allergies Allergy/AdvReac Type Severity Reaction Status Date / Time No Known Allergies Allergy Unverified 02/19/19 14:12 Home Medications Home Medications Medication Instructions Recorded Confirmed Type atorvastatin 20 mg PO HS 02/19/19 02/19/19 History digoxin 125 mcg PO MOTUWETHFR@2100 02/19/19 02/19/19 History furosemide 20 mg PO Q2D 02/19/19 02/19/19 History lisinopril 2.5 mg PO QAM 02/19/19 02/19/19 History loratadine [Claritin] 10 mg PO HS PRN 02/19/19 02/19/19 History magnesium oxide 400 mg PO HS 02/19/19 02/19/19 History metoprolol succinate 100 mg PO QAM 02/19/19 02/19/19 History multivit with min-folic acid [One 0.4 mg PO QDL 02/19/19 02/19/19 History Daily Womens 50 Plus] pantoprazole 40 mg PO BID 02/19/19 02/19/19 History potassium chloride [Klor-Con M20] 20 meq PO Q2D 02/19/19 02/19/19 History warfarin 1.25 mg PO SUTUWETHSA@1600 02/19/19 02/19/19 History warfarin 2.5 mg PO MOFR@1600 02/19/19 02/19/19 History Patient History Medical History (Updated 02/20/19 @ 14:39 by Rodolfo Magallon MD) Anemia Chronic diastolic heart failure (Chronic) CKD (chronic kidney disease), stage III Dementia Hiatal hernia (Chronic) Mild aortic regurgitation Mild mitral valve regurgitation Mild tricuspid valve regurgitation Persistent atrial fibrillation (Chronic) Surgical History No pertinent past surgical history Family History Mother Brain cancer Other Atrial fibrillation Social History Preferred Language: Lithuanian Communication Ability: Effective Beliefs That Will Affect Care: None Current Living Situation: Spouse Other Information That Helps Us Care for You: No Feels Safe at Home: Yes Safety Concerns: Feels Safe At This Time Smoking Status: Former smoker Hx Alcohol Use: No Hx Substance Use: No Review of Systems Review of Systems: Patient denies any recent fevers or chills, recent colds or flulike symptoms. No unexplained weight loss or weight gain. No increased cough or sputum production. Patient states that she normally does have a cough at home that has been chronic but while she has been in the hospital, she notes that she has not had that problem. History of chronic A. fib on Coumadin. History of chronic diastolic heart failure. Denies any chest pain or chest pressure. History of GERD for which she states that she sleeps with a few pillows at night to help combat this. No history of unusual abdominal pain, nausea, vomiting, diarrhea, peptic ulcer disease, melena, hematochezia, hematemesis. No history of frequent urinary tract infections, hematuria, pyuria, or dysuria. Denies history of CVA, TIA. No history of migraine headaches, vertigo, lightheadedness, seizure disorder. Physical Exam Physical Exam: Patient is currently awake and alert and oriented x3. No acute distress. Pleasant and cooperative. Focusing the exam on the left lower extremity, she is noted to be in 5 pounds of Moran's traction which is left on during exam. No attempts were made to move the left hip or knee due to fracture. She has good range of motion of her left ankle and toes and sensation is intact. Her left knee is nontender on palpation and there is no noted effusion. Right lower extremity is unaffected and is within normal limits. She denies any pain in the shoulders elbows or wrist. Range of motion is intact. Distal pulses are equal bilaterally of the upper and lower extremities. She has no pain on palpation of her neck at this time and range of motion is within normal limits. He denies any thoracic or low back pain. There is no gross motor or sensory loss seen at this time other than being immobile to do range of motion of the left hip due to traction and fracture. Results & Data Vital Signs (Past 12 Hours) Vital Signs Temp Pulse Pulse Resp BP Pulse Ox 02/20/19 08:00 36.4 C L 84 92 H 17 115/75 94 02/20/19 02:47 36.7 C 85 18 98/73 L 96 02/20/19 00:00 103 H 02/19/19 23:47 36.5 C 94 H 18 103/66 96 Laboratory Results Laboratory Results WBC 11.11 K/uL (4.8-10.8) H 02/20/19 05:23 RBC 3.58 M/uL (4.2-5.4) L 02/20/19 05:23 Hgb 10.8 g/dL (12.0-16.0) L 02/20/19 05:23 Hct 32.7 % (37-47) L 02/20/19 05:23 MCV 91.3 fL (80-100) 02/20/19 05:23 MCH 30.2 pg (25-34) 02/20/19 05:23 MCHC 33.0 g/dL (32-36) 02/20/19 05:23 RDW Std Deviation 45.4 fL (36.4-46.3) 02/20/19 05:23 RDW Coeff of Adelfo 13.7 % (11.5-14.5) 02/20/19 05:23 Plt Count 225 K/uL (130-400) 02/20/19 05:23 MPV 9.6 fL (7.4-10.4) 02/20/19 05:23 Immature Gran % (Auto) 0.3 % 02/19/19 12:18 Neut % (Auto) 52.2 % 02/19/19 12:18 Lymph % (Auto) 39.8 % 02/19/19 12:18 [place] % (Auto) 5.7 % 02/19/19 12:18 Eos % (Auto) 1.8 % 02/19/19 12:18 Baso % (Auto) 0.2 % 02/19/19 12:18 Immature Gran # (Auto) 0.03 K/uL (0.00-0.02) H 02/19/19 12:18 Neut # (Auto) 6.26 K/uL (1.4-6.5) 02/19/19 12:18 Lymph # (Auto) 4.77 K/uL (1.2-3.4) H 02/19/19 12:18 [place] # (Auto) 0.68 K/uL (0.11-0.59) H 02/19/19 12:18 Eos # (Auto) 0.21 K/uL (0-0.5) 02/19/19 12:18 Baso # (Auto) 0.02 K/uL (0-0.2) 02/19/19 12:18 PT 15.7 Seconds (9.0-12.0) H 02/20/19 09:41 INR 1.6 (0.9-1.1) H 02/20/19 09:41 Sodium 137 mmol/L (136-145) 02/20/19 05:23 Potassium 4.0 mmol/L (3.5-5.1) 02/20/19 05:23 Chloride 105 mmol/L (98-107) 02/20/19 05:23 Carbon Dioxide 25 mmol/L (21-32) 02/20/19 05:23 Anion Gap 7.0 (3-11) 02/20/19 05:23 BUN 15 mg/dl (7-18) 02/20/19 05:23 Creatinine 0.91 mg/dl (0.6-1.2) D 02/20/19 05:23 Est Cr Clr Drug Dosing 45.7 ml/min 02/20/19 05:23 Est GFR ( Amer) 70.0 02/20/19 05:23 Est GFR (Non-Af Amer) 60.4 02/20/19 05:23 BUN/Creatinine Ratio 16.6 (10-20) 02/20/19 05:23 Glucose 113 mg/dl (70-99) H 02/20/19 05:23 Calcium 8.6 mg/dl (8.5-10.1) 02/20/19 05:23 Total Bilirubin 0.6 mg/dl (0.2-1) 02/19/19 12:18 AST 19 U/L (15-37) 02/19/19 12:18 ALT 20 U/L (12-78) 02/19/19 12:18 Alkaline Phosphatase 129 U/L (45-117) H 02/19/19 12:18 Total Protein 7.4 gm/dl (6.4-8.2) 02/19/19 12:18 Albumin 3.5 gm/dl (3.4-5.0) 02/19/19 12:18 Globulin 3.9 gm/dl (2.5-4.0) 02/19/19 12:18 Albumin/Globulin Ratio 0.9 (0.9-2) 02/19/19 12:18 Urine Color Yellow 02/19/19 15:30 Urine Appearance Clear (Clear) 02/19/19 15:30 Urine pH 7.5 (4.5-7.5) 02/19/19 15:30 Ur Specific [place] 1.012 (1.000-1.030) 02/19/19 15:30 Urine Protein Negative (Negative) 02/19/19 15:30 Urine Glucose (UA) Negative (Negative) 02/19/19 15:30 Urine Ketones Negative (Negative) 02/19/19 15:30 Urine Blood Negative (Negative) 02/19/19 15:30 Urine Nitrite Negative (Negative) 02/19/19 15:30 Urine Bilirubin Negative (Negative) 02/19/19 15:30 Urine Urobilinogen Negative (Negative) 02/19/19 15:30 Ur Leukocyte Esterase Negative (Negative) 02/19/19 15:30 Digoxin 0.7 ng/ml (0.8-2.0) L 02/19/19 12:18 Blood Type A Positive 02/19/19 17:31 Antibody Screen NEGATIVE 02/19/19 17:31 Diagnostic Findings Patient: Emmanuel BISHOP Date: 02/19/19 MR#: [id number]: [id number] DANNIKEYONNA JACQUES Acct ID:[id number]: Date: [address] [place] [address] Zip: [place] [address] Age: 78Location: ED Sex: F Room/Bed: Att Phy:Diagnosis: fall/ L hip pain Emma Phy: PCP,NOService Date: 02/19/19 Fam Phy:Interpreting Phy: Raheel Quiñones MD Admit Phy: Ordering Phy: Bismark Dobbs M.D. cc: ~ XR femur LT 2V routine CLINICAL HISTORY: 78 years-old Female presenting with fall, ?frx. TECHNIQUE: Frontal and lateral views of the left femur were obtained. COMPARISON: None. FINDINGS: Mildly comminuted fracture of the left femur predominately in a subtrochanteric location, however, there is involvement of the lesser trochanter. The proximal fracture fragment consists of the left femoral head, neck, and greater trochanter as well as the lateral cortex of the proximal metaphysis. Cortical fracture fragments may be present within the fracture plane. There is 1 shaft width medial displacement of the femoral diaphysis. There is also possible minimal foreshortening. Coxa varus angulation. Visualized portion of bony pelvis intact. Knee joint intact. Degenerative changes of the knee. Underlying osteopenia suspected. Atherosclerosis. IMPRESSION: Significantly displaced and mildly comminuted subtrochanteric left femur fracture.
[2019-02-20] MEDS ORDERED: SODIUM CHLORIDE 0.9% 250 ML IV PRN ×2 (11:18→11:19)
[2019-02-20] MEDS: FOLIC ACID 400 MCG TAB PO SCH (12:01)
--- NOTE | 2019-02-20 12:40 | Electrocardiogram Report ---
Test Reason : Blood Pressure : / mmHG Vent. Rate : 092 BPM Atrial Rate : 000 BPM P-R Int : 000 ms QRS Dur : 076 ms QT Int : 348 ms P-R-T Axes : 000 103 217 degrees QTc Int : 430 ms Atrial fibrillation Lateral infarct , age undetermined Abnormal ECG When compared with ECG of 19-FEB-2019 12:33, Lateral infarct is now Present Nonspecific T wave abnormality, worse in Inferior leads Nonspecific T wave abnormality now evident in Lateral leads Confirmed by Cesar Solano ([id number]) on 02/20/2019 12:40:14 PM Referred By: REFERRED SELF Confirmed By:Cesar Solano
[2019-02-20] MEDS: ONDANSETRON INJ 2 MG/ML 2 ML VIAL IV PRN (13:40)
--- NOTE | 2019-02-20 14:39 | Anesthesiology Consultation ---
Date of Service February 20, 2019 Assessment & Plan (1) Encounter for pre-operative examination: Chart Review Chart Review: Acceptable Risk for Surgery History Surgery Operation Date: 02/20/19 07:00 Proposed Procedures p Left Long Trochanteric Femoral Nail Synthes - Raheel Gomez MD Height/Weight Height: 5 ft 2 in Weight: 67 kg Allergies Allergy/AdvReac Type Severity Reaction Status Date / Time No Known Allergies Allergy Unverified 02/19/19 14:12 Medications Home Medications Medication Instructions Recorded Confirmed Last Taken atorvastatin 20 mg PO HS 02/19/19 02/19/19 Unknown digoxin 125 mcg PO MOTUWETHFR@2100 02/19/19 02/19/19 02/18/19 16:00 furosemide 20 mg PO Q2D 02/19/19 02/19/19 02/18/19 lisinopril 2.5 mg PO QAM 02/19/19 02/19/19 02/19/19 loratadine [Claritin] 10 mg PO HS PRN 02/19/19 02/19/19 02/18/19 magnesium oxide 400 mg PO HS 02/19/19 02/19/19 Unknown metoprolol succinate 100 mg PO QAM 02/19/19 02/19/19 02/19/19 multivit with min-folic acid [One 0.4 mg PO QDL 02/19/19 02/19/19 02/18/19 Daily Womens 50 Plus] pantoprazole 40 mg PO BID 02/19/19 02/19/19 02/19/19 potassium chloride [Klor-Con M20] 20 meq PO Q2D 02/19/19 02/19/19 02/18/19 warfarin 1.25 mg PO SUTUWETHSA@1600 02/19/19 02/19/19 02/18/19 16:00 warfarin 2.5 mg PO MOFR@1600 02/19/19 02/19/19 02/16/19 16:00 Active Medications Generic Name Dose Route Start Last Admin Trade Name Freq PRN Reason Stop Dose Admin Atorvastatin Calcium 20 mg 02/19/19 21:00 02/19/19 20:50 Lipitor PO 03/21/19 20:59 20 mg HS UMU Administration Digoxin 0.125 mg 02/19/19 21:00 02/19/19 20:50 Lanoxin PO 02/08/20 20:59 0.125 mg MoTuWeThFr@2100 UMU Administration Folic Acid 400 mcg 02/20/19 11:30 02/20/19 12:01 Folvite PO 03/22/19 11:29 400 mcg QDL UMU Administration Hydromorphone HCl 0.25 mg 02/19/19 15:10 02/20/19 13:40 Dilaudid IV 03/05/19 15:09 0.25 mg Q30M PRN Administration Moderate/Severe Pain Sodium Chloride 1,000 mls @ 80 mls/hr 02/19/19 17:12 02/20/19 05:50 Nss 1000ml IV 03/21/19 17:11 80 mls/hr .[id number] UMU Administration Lisinopril 2.5 mg 02/20/19 09:00 02/20/19 08:05 Zestril PO 03/22/19 08:59 2.5 mg QAM UMU Administration Magnesium Oxide 400 mg 02/19/19 21:00 02/19/19 20:51 Mag-Ox PO 03/21/19 20:59 Not Given HS UMU Metoprolol Succinate 100 mg 02/20/19 09:00 02/20/19 08:03 Toprol Xl PO 03/22/19 08:59 100 mg QAM UMU Administration Ondansetron HCl 4 mg 02/19/19 17:38 02/20/19 13:40 Zofran IV 03/21/19 17:37 4 mg Q6H PRN Administration Nausea Pantoprazole Sodium 40 mg 02/19/19 21:00 02/20/19 12:08 Protonix PO 03/21/19 20:59 40 mg BID UMU Administration Senna/Docusate Sodium 2 tab 02/19/19 21:00 02/19/19 20:52 Senokot S PO 03/21/19 20:59 Not Given HS UMU Past Medical History Medical History (Updated 02/20/19 @ 14:39 by Rodolfo Magallon MD) Anemia Chronic diastolic heart failure (Chronic) CKD (chronic kidney disease), stage III Dementia Hiatal hernia (Chronic) Mild aortic regurgitation Mild mitral valve regurgitation Mild tricuspid valve regurgitation Persistent atrial fibrillation (Chronic) Past Family History Family History Mother Brain cancer Other Atrial fibrillation Past Surgical History Surgical History No pertinent past surgical history Social History Smoking Status: Former smoker Hx Alcohol Use: No Hx Substance Use: No Physical Exam Vital Signs Last Vital Signs Temp 36.8 C 02/20/19 14:29 Pulse 84 02/20/19 14:29 Resp 19 02/20/19 14:29 BP 107/60 02/20/19 14:29 Pulse Ox 95 02/20/19 14:29 Testing Laboratory Results 02/20/19 05:23 02/20/19 05:23 PT 15.7 Seconds (9.0-12.0) H 02/20/19 09:41 INR 1.6 (0.9-1.1) H 02/20/19 09:41 Urine Color Yellow 02/19/19 15:30 Urine Appearance Clear (Clear) 02/19/19 15:30 Urine pH 7.5 (4.5-7.5) 02/19/19 15:30 Ur Specific [place] 1.012 (1.000-1.030) 02/19/19 15:30 Urine Protein Negative (Negative) 02/19/19 15:30 Urine Glucose (UA) Negative (Negative) 02/19/19 15:30 Urine Ketones Negative (Negative) 02/19/19 15:30 Urine Nitrite Negative (Negative) 02/19/19 15:30 Ur Leukocyte Esterase Negative (Negative) 02/19/19 15:30 Blood Type A Positive 02/19/19 17:31 Antibody Screen NEGATIVE 02/19/19 17:31 Electrocardiogram Date: 02/19/19 Findings: + AFIB @ (92 lateral infarct) Chest X-Ray Date: 02/19/19 Findings: + NAD and + cardiomegaly
[2019-02-20] MEDS ORDERED: fentaNYL citrate 100 MCG/2 ML VIAL ONE ×2 (15:50→17:43)
[2019-02-20] MEDS ORDERED: DEXAMETHASONE SOD INJ 4 MG/ML VIAL ONE (15:50)
[2019-02-20] MEDS ORDERED: LIDOCAINE HCL 2% 2 ML VIAL/AMP(20MG/ML) INFIL ONE (15:50)
[2019-02-20] MEDS ORDERED: ONDANSETRON INJ 2 MG/ML 2 ML VIAL ONE ×2 (15:50→18:51)
[2019-02-20] MEDS ORDERED: PROPOFOL IV EMULSION 10 MG/ML 20 ML VIAL IV ONE (15:50)
[2019-02-20] MEDS ORDERED: BUPIVACAINE/EPINEPHRINE 0.5% MPF 1:200,000 10 ML VIAL ONE (16:09)
--- NOTE | 2019-02-20 16:16 | History & Physical Bridge Note ---
Date of Service February 20, 2019 History & Physical Bridge Note I have examined the patient, reviewed the History & Physical and in the interval since the performance of the History & Physical I have noted the following changes of clinical significance: no changes noted
[2019-02-20] MEDS ORDERED: ATROPINE SULFATE 0.1 MG/ML 10ML SYR IV PRN (16:21)
[2019-02-20] MEDS ORDERED: ePHEDrine sulfate 50 MG/ML AMP IV PRN (16:21)
[2019-02-20] MEDS ORDERED: ONDANSETRON INJ 2 MG/ML 2 ML VIAL IV PRN (16:21)
[2019-02-20] MEDS ORDERED: HYDROmorphone INJ 1 MG/ML SYRINGE IV PRN (16:21)
[2019-02-20] MEDS ORDERED: ePHEDrine sulfate 50 MG/ML SYR ONE (17:08)
--- NOTE | 2019-02-20 19:36 | Operative Report ---
Post Operative Report Pre & Post Diagnosis Operation Date: 02/20/19 07:00 Pre-Op Diagnosis: Displaced subtrochanteric fracture of left femur Post-Op Diagnosis: Displaced subtrochanteric fracture of left femur I identified the patient and participated in the time-out.: Yes Procedure Operation Date: 02/20/19 07:00 Actual Procedures p Open Reduction Internal Fixation Left Subtronchateric Femur Fracture(Left) - Raheel Gomez MD Surgeon Raheel Gomez MD Sheriffs Officer Stevie Napoles PA-C Estimated Blood Loss 100 Findings Consistent with Post-Op Diagnosis Specimens None Drains None Anesthesia Type General Disposition Disposition: Recovery Room Indications The patient is a 78-year-old female sustained a fall onto the left hip while going to her car. She sustained a comminuted displaced left sub-troches with extension into the inner troches region femur fracture. She is chronically on Coumadin for treatment of A. fib. Her INR has been reversed. She has been cleared medically and presents for operative repair. Description of Procedure Risks benefits and alternatives of surgery including but not limited to infection, DVT, PE, pain, stiffness, need for surgery, damage to blood vessels, damage to nerves or risks of anesthesia, were discussed with the patient and her family and they wished to proceed. Patient was identified in the latera lity was confirmed and marked. They received a preoperative antibiotic. The patient was transferred to the fracture table. The operative limb was placed in traction and the well leg was placed in a well leg lee that was well-padded. The arms were well-padded and placed out of the way of the surgical field. I confirmed reduction of the fracture with fluoroscopy with the patient's fracture table and made adjustments to fracture table alignment is necessary to reduce the fracture appropriately. The hip was then prepped and draped in the usual standard manner with ChloraPrep. I made a longitudinal incision proximal to the greater trochanter. I sharply incised through the skin and then used Bovie electrocautery to achieve hemostasis. I incised through the fascia and then bluntly dissected down to the tip of the greater trochanter. She had fairly significant comminution of the fracture. There was an inotrope fracture as well as a extension into the subtrochanteric region. The lesser trochanter was fractured off. The more proximal fragment wanted to displace into flexion. We needed to extend our excision both proximally as well as the mid incision to get a bone hook as well as a Casas around the region to appropriately reduce the fracture. Then under fluoroscopic guidance I placed a guide pin into the greater trochanter and ensured proper placement on both AP and lateral fluoroscopy views. In order to appropriately place the distal guide morenita down the femur we placed the awl down proximally into the more distal fragment remove the guidepin and then use this to place the long guide morenita. Once I was satisfied with the position of the guide. I advanced this distally. I then overreamed with the 17 mm proximal reamer. I then reamed up to a 12.5 mm reamer distally. I then placed a Synthes trochanteric fixation nail into position. The size of the nail was long nail. Then I placed the guide arm onto the nail insertion device made a stab incision more distally and then placed the drill guide for the helical blade. I adjusted the position of the nail as necessary to ensure that the guidepin was center center in the femoral head. Once I was satisfied with the position of the pin advanced it to the appropriate position of the femoral head. I then measured and then reamed the lateral cortex and then reamed down into the femoral head. I then inserted a size 85 [address]. I then locked the set screw proximally and then compressed the fracture. Then through a stab incision I placed a interlocking screw using a freehand technique distally playing to seeing 2 screws into position through the nail. I confirmed hardware placement and maintenance of reduction on AP and lateral fluoroscopy views. Wounds were then thoroughly irrigated. The fascia was closed with interrupted #1 Vicryl suture. Subcutaneous tissues closed with interrupted 2-0 Vicryl suture and the skin with clayton. Sterile dressings applied. All needle and sponge counts were correct at the end of the procedure the patient was transferred to the PACU in stable condition without apparent complication. The PA-C was necessary for assistance with procedure for assistance in positioning, prepping, draping, retraction and closure. I attest to the content of the Intraoperative Record and any orders documented therein. Any exceptions are noted below.
--- NOTE | 2019-02-20 19:53 | Fluoroscopy Report ---
FL hip LT 2-3V CLINICAL HISTORY: Intertrochanteric hip fracture status post internal fixation COMPARISON STUDY: 02/19/2019 FLUOROSCOPY TIME: 377 seconds. NUMBER OF FLUOROSCOPIC IMAGES: 4 FINDINGS: The previously identified comminuted intertrochanteric left hip fracture has been fixated w ith a trochanteric nail, and interlocking intramedullary morenita. The lesser trochanteric fragment is mil dly displaced. IMPRESSION: Fluoroscopic spot images demonstrating internal fixation of an intertrochanteric left hi p fracture with a trochanteric nail and interlocking intramedullary morenita ACT 112: Negative or not required by law. Electronically signed by: Isidro Macias M.D. 02/20/2019 7:51 PM
[2019-02-20] MEDS: fentaNYL citrate 100 MCG/2 ML VIAL IV PRN ×3 (19:57→20:07)
--- NOTE | 2019-02-20 20:33 | Anesthesiology Progress Note ---
Date of Service February 20, 2019 Anesthesia Post Procedure Vital Signs Vital Signs: Temp Pulse Pulse Pulse Resp BP BP 02/20/19 20:25 36.4 C L 99 H 18 02/20/19 20:15 95 H 17 02/20/19 20:05 89 17 02/20/19 19:55 109 H 19 02/20/19 19:45 36.5 C 93 H 16 02/20/19 16:18 37 C 87 16 126/73 02/20/19 16:06 37 C 92 H 16 02/20/19 15:41 37 C 83 16 126/73 02/20/19 15:26 36.5 C 87 17 106/64 02/20/19 15:24 36.7 C 84 18 94/58 L 02/20/19 15:13 36.8 C 78 18 94/58 L 02/20/19 15:11 36.8 C 73 18 94/58 L 02/20/19 14:50 36.8 C 76 19 91/54 L 02/20/19 14:29 36.8 C 84 19 107/60 02/20/19 14:20 87 02/20/19 13:29 36.6 C 89 19 104/60 02/20/19 12:59 36.6 C 98 H 19 124/73 02/20/19 12:44 36.6 C 89 19 123/69 02/20/19 12:24 36.6 C 94 H 19 116/73 02/20/19 11:34 36.4 C L 92 H 18 137/65 02/20/19 08:00 36.4 C L 84 92 H 17 115/75 02/20/19 02:47 36.7 C 85 18 98/73 L 02/20/19 00:00 103 H 02/19/19 23:47 36.5 C 94 H 18 103/66 02/19/19 20:50 101 H BP Pulse Ox 02/20/19 20:25 116/71 99 02/20/19 20:15 110/75 97 02/20/19 20:05 114/74 99 02/20/19 19:55 92/72 L 97 02/20/19 19:45 114/71 96 02/20/19 16:18 96 02/20/19 16:06 126/73 96 02/20/19 15:41 96 02/20/19 15:26 97 02/20/19 15:24 97 02/20/19 15:13 97 02/20/19 15:11 98 02/20/19 14:50 88 L 02/20/19 14:29 95 02/20/19 14:20 02/20/19 13:29 95 02/20/19 12:59 94 02/20/19 12:44 95 02/20/19 12:24 97 02/20/19 11:34 96 02/20/19 08:00 94 02/20/19 02:47 96 02/20/19 00:00 02/19/19 23:47 96 02/19/19 20:50 Pain Intensity Left Leg: Pain Intensity: 2 Transfer of Care Handoff Completed per policy Notes Mental Status: alert / awake / arousable and participated in evaluation Patient Amnestic to Procedure: Yes Nausea / Vomiting: adequately controlled Pain: adequately controlled Airway Patency, RR, SpO2: stable & adequate BP & HR: stable & adequate Hydration State: stable & adequate Anesthetic Complications: no major complications apparent and Pt Satisfied with anesthetic care
[2019-02-20] MEDS ORDERED: CEFAZOLIN 1000MG 1,000 MG/7.5 ML SYR IV ONE (21:39)
[2019-02-20] MEDS: DOCUSATE SODIUM/SENNA 50/8.6MG TAB PO SCH (21:42)
[2019-02-20] MEDS: DIGOXIN 0.125 MG TAB PO SCH (21:42)
[2019-02-20] MEDS: ATORVASTATIN 20 MG TAB PO SCH (21:42)
[2019-02-20] MEDS: MAGNESIUM OXIDE 400 MG TAB PO SCH (21:44)
[2019-02-21] MEDS: SODIUM CHLORIDE 0.9% 1000ML 1,000 ML IV SCH ×2 (00:28→11:22)
[2019-02-21 06:20] LABS: Basophils # (auto) 0.01 K/uL (0-0.2); Basophils % (auto) 0.1 %; Hematocrit (blood only) 24.6 % (37-47); Hemoglobin 8.1 g/dL (12.0-16.0); Immature Granulocytes # (auto) 0.03 K/uL (0.00-0.02); Immature Granulocytes % (auto) 0.3 %; Lymphocytes # (auto) 1.46 K/uL (1.2-3.4); Lymphocytes % (auto) 14.4 %; Mean Corpuscular Hemoglobin 30.6 pg (25-34); Mean Corpuscular Hgb Conc 32.9 g/dL (32-36); Mean Corpuscular Volume 92.8 fL (80-100); Mean Platelet Volume 9.8 fL (7.4-10.4); Monocytes # (auto) 0.81 K/uL (0.11-0.59); Neutrophils # (auto) 7.85 K/uL (1.4-6.5); Neutrophils % (auto) 77.2 %; Platelet Count 185 K/uL (130-400); RDW Coefficient of Variation 13.6 % (11.5-14.5); RDW Standard Deviation 45.8 fL (36.4-46.3); Red Blood Count 2.65 M/uL (4.2-5.4); White Blood Count 10.16 K/uL (4.8-10.8)
--- NOTE | 2019-02-21 06:48 | Hospitalist Progress Note ---
Date of Service February 21, 2019 Assessment & Plan (1) Fall: (2) Closed left hip fracture: This is a 78-year-old female with a PMH of chronic diastolic heart failure, persistent atrial fibrillation on anticoagulation, CKD III and other medical problems listed below who presents from home after a fall and was found to have a left femur fracture. -S/p mechanical fall slipping on ice, femur XR with evidence of significantly displaced and mildly comminuted subtrochanteric left femur fracture [facility] Dr. Gomez performed an ORIF L Subtrochanteric Cfrcckhj-[id number]-Ebbbm or home in 1-3 days -INR supratherapeutic at 3.3- last dose taken yesterday at 1600. Given 2.5mg PO Vitamin K for reversal with INR recheck this evening at 2100 -Pre-op: history of persistent A fib - currently rate controlled at 85 bpm, CXR with cardiomegaly, no acute changes Restart Warfarin today or / am (3) CHI (closed head injury): Does not remember whether or not she hit her head but felt that patient was briefly confused following fall -CT head, cervical spine CT without acute abnormalities -Currently A&O x4. Monitor closely, neuro checks (4) Persistent atrial fibrillation: Rate controlled with HR of 85 -Continue Toprol, Digoxin -Coumadin per INR (5) Chronic diastolic heart failure: Appears euvolemic clinically, on CXR -Monitor volume status closely -Home diuretics schedule of Lasix 20mg Q2D (6) Hiatal hernia: Continue PPI, elevate head of bed DVT Ppx: SCDs, restart Warfarin per Ortho Code status: FULL PCP: Leonel García Dispo: PCU. Discharge planning ordered. Labs Checked ROS-No Headache, No Visual Changes, No Nausea, No Vomiting, No Fever, No Chills, No Neck Pain or Stiffness, No Chest Pain, No Palpitations, No SOB, No BILLINGSLEY, No Cough, No Sputum, No Wheezing, No Abdominal Pain, No Diarrhea, No Hematemesis, No Hemoptysis, No Unexpected Weight Loss, No Flank pain, No Melena, No Hematochezia, No Frequency, No Urgency, No Burning, No Hematuria, No Rashes, No Diaphoresis. Appetite is Normal Physical Exam Gen-AAO x 3, NAD, Afebrile Head-NCAT, EOMI, PERRLA, Anicteric Sclera, No Posterior Pharyngeal Erythema Neck-Supple, No JVD, No Thyromegaly, No Masses, No LAD, No Bruits Lungs-Clear to Auscultation Bilaterally, No Rales, No Rhonchi, No Wheezing, No Crepitus Chest-Irreg/Irreg, No S4, +S1, +S2, No S3, No Murmurs, No Rubs, No Gallops, + Ectopy Abdomen-Soft, Bowel Sounds Present, Non Tender, Non Distended, No Hepatomegaly, No Splenomegaly, No Palpable Masses, No Rebound, No Rigidity, No Guarding Musculoskeletal-Full Range of Motion Bilaterally, No CVAT Extremities-No Cyanosis, No Clubbing, No Edema ++SCDs Nuero-Cranial Nerves II-XII grossly intact, Motor WNL, DTRs WNL, Strength WNL, Non Focal Psych-Normal Mood Results & Data Vital Signs (Past 12 Hours) Vital Signs Temp Pulse Pulse Resp BP BP Pulse Ox 02/21/19 04:00 36.8 C 95 H 16 101/64 95 02/21/19 01:00 78 14 99 02/21/19 00:45 80 16 99 02/21/19 00:30 79 15 99 02/21/19 00:15 82 15 99 02/21/19 00:01 78 15 99 02/21/19 00:00 36.5 C 77 88 17 97/64 L 92/65 L 98 02/20/19 23:45 77 13 95 02/20/19 23:42 89 16 92/65 L 100 02/20/19 23:30 17 99 02/20/19 23:15 19 100 02/20/19 23:00 19 99 02/20/19 22:45 19 100 02/20/19 22:30 15 100 02/20/19 22:16 15 99 02/20/19 22:15 16 108/64 99 02/20/19 22:01 15 97 02/20/19 22:00 18 99/64 L 02/20/19 21:46 87 18 125/60 100 02/20/19 21:45 96 H 19 99 02/20/19 21:42 97 H 02/20/19 21:31 101 H 26 H 117/61 99 02/20/19 21:30 83 22 02/20/19 21:16 84 19 100 02/20/19 21:15 82 14 101/57 L 97 02/20/19 21:01 89 17 99 02/20/19 21:00 98 H 16 105/63 98 02/20/19 20:45 111 H 19 106/60 93 02/20/19 20:37 93 H 16 117/67 98 02/20/19 20:25 36.4 C L 99 H 18 116/71 99 02/20/19 20:15 95 H 17 110/75 97 02/20/19 20:05 89 17 114/74 99 02/20/19 19:55 109 H 19 92/72 L 97 02/20/19 19:45 36.5 C 93 H 16 114/71 96 (1) Fall Encounter type: initial encounter Qualified Code(s): W19.XXXA - Unspecified fall, initial encounter (2) Closed left hip fracture Encounter type: initial encounter Qualified Code(s): S72.002A - Fracture of unspecified part of neck of left femur, initial encounter for closed fracture (3) CHI (closed head injury) Encounter type: initial encounter Qualified Code(s): S09.90XA - Unspecified injury of head, initial encounter
[2019-02-21 06:58] LABS: Albumin Level 2.4 gm/dl (3.4-5.0); BUN Creatinine Ratio 13.1 (10-20); Creatinine Clr Calc Pharmacy 47.6 ml/min; Est GFR (African American) 67.3; Est GFR (Non-African American) 58.1; Potassium 3.8 mmol/L (3.5-5.1)
[2019-02-21 07:02] LABS: Albumin Globulin Ratio 0.7 (0.9-2); Bilirubin,Total 0.7 mg/dl (0.2-1); Globulin 3.4 gm/dl (2.5-4.0); Total Protein 5.8 gm/dl (6.4-8.2)
[2019-02-21] MEDS: HYDROmorphone INJ 0.5 MG/0.5 ML SYR IV PRN ×2 (07:35→15:08)
[2019-02-21] MEDS: PANTOprazole 40 MG TAB PO SCH ×2 (07:39→21:40)
--- NOTE | 2019-02-21 08:11 | Orthopedic Progress Note ---
Date of Service February 21, 2019 Assessment & Plan (1) Displaced subtrochanteric fracture of left femur: Postop day 1 status post ORIF left subtrochanteric femur fracture with long TFN Begin PT/OT protocols. Partial weightbearing DVT prophylaxis-plan to resume Coumadin today. If bridging with Lovenox or heparin is required, would recommend starting around noon today if needed. Pain management-oxycodone, hydromorphone DC planning-depending on how her therapy progresses, she might need a stay at [facility] re[facility]. (2) Anemia: Hemoglobin is 8.1 this morning. Anemia most likely due to fracture and ORIF. Currently she is asymptomatic. Transfusion criteria as noted by Dr. Crow. Subjective Patient currently lying in bed. Awake and alert. Her daughter is present. She is in good spirits this morning and appears to be comfortable. She states that she was having muscle spasms off and on in the operative leg. No other complaints at this time. Denies shortness of breath, chest pain, lightheadedness. Physical Exam Physical Exam: Dressings are clean, dry, intact. Thigh is soft with mild swelling. Calves are soft and nontender. Neurovascular is intact. Toes are mobile. She has good dorsiflexion and plantarflexion of the left ankle. Capillary refill is less than 2 seconds. Results & Data Vital Signs (Past 12 Hours) Vital Signs Temp Pulse Pulse Resp BP BP Pulse Ox 02/21/19 04:00 36.8 C 95 H 16 101/64 95 02/21/19 01:00 78 14 99 02/21/19 00:45 80 16 99 02/21/19 00:30 79 15 99 02/21/19 00:15 82 15 99 02/21/19 00:01 78 15 99 02/21/19 00:00 36.5 C 77 88 17 97/64 L 92/65 L 98 02/20/19 23:45 77 13 95 02/20/19 23:42 89 16 92/65 L 100 02/20/19 23:30 17 99 02/20/19 23:15 19 100 02/20/19 23:00 19 99 02/20/19 22:45 19 100 02/20/19 22:30 15 100 02/20/19 22:16 15 99 02/20/19 22:15 16 108/64 99 02/20/19 22:01 15 97 02/20/19 22:00 18 99/64 L 02/20/19 21:46 87 18 125/60 100 02/20/19 21:45 96 H 19 99 02/20/19 21:42 97 H 02/20/19 21:31 101 H 26 H 117/61 99 02/20/19 21:30 83 22 02/20/19 21:16 84 19 100 02/20/19 21:15 82 14 101/57 L 97 02/20/19 21:01 89 17 99 02/20/19 21:00 98 H 16 105/63 98 02/20/19 20:45 111 H 19 106/60 93 02/20/19 20:37 93 H 16 117/67 98 02/20/19 20:25 36.4 C L 99 H 18 116/71 99 02/20/19 20:15 95 H 17 110/75 97 02/20/19 20:05 89 17 114/74 99 Laboratory Results Laboratory Results WBC 10.16 K/uL (4.8-10.8) 02/21/19 05:59 RBC 2.65 M/uL (4.2-5.4) L 02/21/19 05:59 Hgb 8.1 g/dL (12.0-16.0) L 02/21/19 05:59 Hct 24.6 % (37-47) L 02/21/19 05:59 MCV 92.8 fL (80-100) 02/21/19 05:59 MCH 30.6 pg (25-34) 02/21/19 05:59 MCHC 32.9 g/dL (32-36) 02/21/19 05:59 RDW Std Deviation 45.8 fL (36.4-46.3) 02/21/19 05:59 RDW Coeff of Adelfo 13.6 % (11.5-14.5) 02/21/19 05:59 Plt Count 185 K/uL (130-400) 02/21/19 05:59 MPV 9.8 fL (7.4-10.4) 02/21/19 05:59 Immature Gran % (Auto) 0.3 % 02/21/19 05:59 Neut % (Auto) 77.2 % 02/21/19 05:59 Lymph % (Auto) 14.4 % 02/21/19 05:59 Henry % (Auto) 8.0 % 02/21/19 05:59 Eos % (Auto) 0.0 % 02/21/19 05:59 Baso % (Auto) 0.1 % 02/21/19 05:59 Immature Gran # (Auto) 0.03 K/uL (0.00-0.02) H 02/21/19 05:59 Neut # (Auto) 7.85 K/uL (1.4-6.5) H 02/21/19 05:59 Lymph # (Auto) 1.46 K/uL (1.2-3.4) 02/21/19 05:59 Henry # (Auto) 0.81 K/uL (0.11-0.59) H 02/21/19 05:59 Eos # (Auto) 0.00 K/uL (0-0.5) 02/21/19 05:59 Baso # (Auto) 0.01 K/uL (0-0.2) 02/21/19 05:59 PT 15.7 Seconds (9.0-12.0) H 02/20/19 09:41 INR 1.6 (0.9-1.1) H 02/20/19 09:41 Sodium 139 mmol/L (136-145) 02/21/19 05:59 Potassium 3.8 mmol/L (3.5-5.1) 02/21/19 05:59 Chloride 107 mmol/L (98-107) 02/21/19 05:59 Carbon Dioxide 26 mmol/L (21-32) 02/21/19 05:59 Anion Gap 6.0 (3-11) 02/21/19 05:59 BUN 12 mg/dl (7-18) 02/21/19 05:59 Creatinine 0.94 mg/dl (0.6-1.2) 02/21/19 05:59 Est Cr Clr Drug Dosing 47.6 ml/min 02/21/19 05:59 Est GFR ( Amer) 67.3 02/21/19 05:59 Est GFR (Non-Af Amer) 58.1 02/21/19 05:59 BUN/Creatinine Ratio 13.1 (10-20) 02/21/19 05:59 Glucose 153 mg/dl (70-99) H 02/21/19 05:59 Calcium 8.0 mg/dl (8.5-10.1) L 02/21/19 05:59 Total Bilirubin 0.7 mg/dl (0.2-1) 02/21/19 05:59 AST 21 U/L (15-37) 02/21/19 05:59 ALT 14 U/L (12-78) 02/21/19 05:59 Alkaline Phosphatase 90 U/L (45-117) 02/21/19 05:59 Total Protein 5.8 gm/dl (6.4-8.2) L D 02/21/19 05:59 Albumin 2.4 gm/dl (3.4-5.0) L 02/21/19 05:59 Globulin 3.4 gm/dl (2.5-4.0) 02/21/19 05:59 Albumin/Globulin Ratio 0.7 (0.9-2) L 02/21/19 05:59 Urine Color Yellow 02/19/19 15:30 Urine Appearance Clear (Clear) 02/19/19 15:30 Urine pH 7.5 (4.5-7.5) 02/19/19 15:30 Ur Specific [place] 1.012 (1.000-1.030) 02/19/19 15:30 Urine Protein Negative (Negative) 02/19/19 15:30 Urine Glucose (UA) Negative (Negative) 02/19/19 15:30 Urine Ketones Negative (Negative) 02/19/19 15:30 Urine Blood Negative (Negative) 02/19/19 15:30 Urine Nitrite Negative (Negative) 02/19/19 15:30 Urine Bilirubin Negative (Negative) 02/19/19 15:30 Urine Urobilinogen Negative (Negative) 02/19/19 15:30 Ur Leukocyte Esterase Negative (Negative) 02/19/19 15:30 Digoxin 0.7 ng/ml (0.8-2.0) L 02/19/19 12:18 Blood Type A Positive 02/19/19 17:31 Blood Type Recheck A Positive 02/20/19 05:23 Antibody Screen NEGATIVE 02/19/19 17:31
[2019-02-21] MEDS ORDERED: FUROSEMIDE 20 MG TAB PO SCH (09:00)
[2019-02-21] MEDS: METOPROLOL SUCC 50MG EXT REL TAB PO SCH (09:26)
[2019-02-21] MEDS: POTASSIUM CHLORIDE 20 MEQ TABCR PO SCH (11:18)
[2019-02-21] MEDS: FOLIC ACID 400 MCG TAB PO SCH (11:19)
--- NOTE | 2019-02-21 13:32 | Anesthesiology Progress Note ---
Date of Service February 21, 2019 Anesthesia Post Procedure Vital Signs Vital Signs: Temp Pulse Pulse Pulse Resp BP BP 02/21/19 11:37 02/21/19 11:27 36.5 C 87 16 119/56 L 02/21/19 09:00 36.6 C 86 17 102/58 L 02/21/19 08:00 83 02/21/19 04:00 36.8 C 95 H 16 02/21/19 01:00 78 14 02/21/19 00:45 80 16 02/21/19 00:30 79 15 02/21/19 00:15 82 15 02/21/19 00:01 78 15 02/21/19 00:00 36.5 C 77 88 17 97/64 L 02/20/19 23:45 77 13 02/20/19 23:42 89 16 92/65 L 02/20/19 23:30 17 02/20/19 23:15 19 02/20/19 23:00 19 02/20/19 22:45 19 02/20/19 22:30 15 02/20/19 22:16 15 02/20/19 22:15 16 108/64 02/20/19 22:01 15 02/20/19 22:00 18 99/64 L 02/20/19 21:46 87 18 125/60 02/20/19 21:45 96 H 19 02/20/19 21:42 97 H 02/20/19 21:31 101 H 26 H 117/61 02/20/19 21:30 83 22 02/20/19 21:16 84 19 02/20/19 21:15 82 14 101/57 L 02/20/19 21:01 89 17 02/20/19 21:00 98 H 16 105/63 02/20/19 20:45 111 H 19 106/60 02/20/19 20:37 93 H 16 117/67 02/20/19 20:25 36.4 C L 99 H 18 02/20/19 20:15 95 H 17 02/20/19 20:05 89 17 02/20/19 19:55 109 H 19 02/20/19 19:45 36.5 C 93 H 16 02/20/19 16:18 37 C 87 16 126/73 02/20/19 16:06 37 C 92 H 16 02/20/19 15:41 37 C 83 16 126/73 02/20/19 15:26 36.5 C 87 17 106/64 02/20/19 15:24 36.7 C 84 18 94/58 L 02/20/19 15:13 36.8 C 78 18 94/58 L 02/20/19 15:11 36.8 C 73 18 94/58 L 02/20/19 14:50 36.8 C 76 19 91/54 L 02/20/19 14:29 36.8 C 84 19 107/60 02/20/19 14:20 87 BP Pulse Ox 02/21/19 11:37 95 02/21/19 11:27 95 02/21/19 09:00 94 02/21/19 08:00 02/21/19 04:00 101/64 95 02/21/19 01:00 99 02/21/19 00:45 99 02/21/19 00:30 99 02/21/19 00:15 99 02/21/19 00:01 99 02/21/19 00:00 92/65 L 98 02/20/19 23:45 95 02/20/19 23:42 100 02/20/19 23:30 99 02/20/19 23:15 100 02/20/19 23:00 99 02/20/19 22:45 100 02/20/19 22:30 100 02/20/19 22:16 99 02/20/19 22:15 99 02/20/19 22:01 97 02/20/19 22:00 02/20/19 21:46 100 02/20/19 21:45 99 02/20/19 21:42 02/20/19 21:31 99 02/20/19 21:30 02/20/19 21:16 100 02/20/19 21:15 97 02/20/19 21:01 99 02/20/19 21:00 98 02/20/19 20:45 93 02/20/19 20:37 98 02/20/19 20:25 116/71 99 02/20/19 20:15 110/75 97 02/20/19 20:05 114/74 99 02/20/19 19:55 92/72 L 97 02/20/19 19:45 114/71 96 02/20/19 16:18 96 02/20/19 16:06 126/73 96 02/20/19 15:41 96 02/20/19 15:26 97 02/20/19 15:24 97 02/20/19 15:13 97 02/20/19 15:11 98 02/20/19 14:50 88 L 02/20/19 14:29 95 02/20/19 14:20 Pain Intensity Left Leg: Pain Intensity: 3 Notes Mental Status: alert / awake / arousable Patient Amnestic to Procedure: Yes Nausea / Vomiting: adequately controlled Pain: adequately controlled Airway Patency, RR, SpO2: stable & adequate BP & HR: stable & adequate Hydration State: stable & adequate Anesthetic Complications: no major complications apparent and Pt Satisfied with anesthetic care
[2019-02-21] MEDS ORDERED: HEPARIN SOD 5,000 UNIT/0.5 ML VIAL SQ SCH (15:00)
[2019-02-21] MEDS: WARFARIN SOD 4 MG TAB PO SCH (15:41)
[2019-02-21] MEDS: ACETAMINOPHEN 500 MG TAB PO SCH ×2 (15:43→18:54)
[2019-02-21] MEDS ORDERED: Nursing to Pharmacy Communication ONE (15:59)
[2019-02-21] MEDS ORDERED: WARFARIN SOD 4 MG TAB PO SCH (16:00)
[2019-02-21] MEDS ORDERED: WARFARIN SOD 5 MG TAB PO SCH (16:00)
[2019-02-21] MEDS: HEPARIN SOD 5,000 UNIT/0.5 ML VIAL SQ SCH (18:53)
[2019-02-21] MEDS: DOCUSATE SODIUM/SENNA 50/8.6MG TAB PO SCH (21:39)
[2019-02-21] MEDS: ATORVASTATIN 20 MG TAB PO SCH (21:39)
[2019-02-21] MEDS: MAGNESIUM OXIDE 400 MG TAB PO SCH (21:40)
[2019-02-22] MEDS: OXYCODONE HCL IR 5 MG TAB (IMMEDIATE RELEASE) PO PRN ×4 (05:05→23:38)
[2019-02-22] MEDS: HEPARIN SOD 5,000 UNIT/0.5 ML VIAL SQ SCH ×2 (05:07→17:48)
--- NOTE | 2019-02-22 05:49 | Electrocardiogram Report ---
Test Reason : Blood Pressure : / mmHG Vent. Rate : 096 BPM Atrial Rate : 093 BPM P-R Int : 000 ms QRS Dur : 076 ms QT Int : 280 ms P-R-T Axes : 000 068 036 degrees QTc Int : 353 ms Atrial fibrillation Nonspecific ST and T wave abnormality Abnormal ECG When compared with ECG of 20-FEB-2019 06:43, Criteria for Lateral infarct are no longer Present QT has shortened Confirmed by Arturo Tan ([id number]) on 02/22/2019 5:49:09 AM Referred By: REFERRED SELF Confirmed By:Arturo Tan
[2019-02-22 06:30] LABS: Hematocrit (blood only) 24.5 % (37-47); Hemoglobin 7.9 g/dL (12.0-16.0); Mean Corpuscular Hgb Conc 32.2 g/dL (32-36); Mean Corpuscular Volume 93.2 fL (80-100); Mean Platelet Volume 9.7 fL (7.4-10.4); Platelet Count 217 K/uL (130-400); RDW Coefficient of Variation 13.7 % (11.5-14.5); RDW Standard Deviation 46.8 fL (36.4-46.3); Red Blood Count 2.63 M/uL (4.2-5.4); White Blood Count 11.74 K/uL (4.8-10.8)
[2019-02-22 06:43] LABS: INR 1.1 (0.9-1.1); Prothrombin Time 11.4 Seconds (9.0-12.0)
[2019-02-22 07:12] LABS: BUN Creatinine Ratio 14.9 (10-20); Calcium 8.2 mg/dl (8.5-10.1); Est GFR (African American) 77.2; Est GFR (Non-African American) 66.6; Potassium 3.6 mmol/L (3.5-5.1)
[2019-02-22] MEDS: PANTOprazole 40 MG TAB PO SCH ×2 (07:55→20:05)
[2019-02-22] MEDS: ACETAMINOPHEN 500 MG TAB PO SCH ×4 (07:58→20:13)
--- NOTE | 2019-02-22 08:12 | Orthopedic Progress Note ---
Date of Service February 22, 2019 Assessment & Plan (1) Displaced subtrochanteric fracture of left femur: Postop day 2 status post ORIF left subtrochanteric femur fracture with long TFN PT/OT protocols. Partial weightbearing DVT prophylaxis- Coumadin restarted. Heparing SQ bridging as per Med Service Pain management-oxycodone, hydromorphone. Having pain since being repositioned. With BP being on the lower side, will give one time dose of Toradol. Dr Gomez present during exam. DC planning-depending on how her therapy progresses, she might need a stay at [facility] rehab. (2) Anemia: Hemoglobin is 8.1 this morning. Anemia most likely due to fracture and ORIF. Currently she is asymptomatic. Transfusion criteria as noted by Dr. Crow. Subjective Pt awake and alert this AM. C/O pain due to being moved to position to eat breakfast. No other complaints. Noted to to have orthostatic hypotension yesterday when trying to get OOB for PT. No new complaints. Physical Exam Physical Exam: Dressings C/D/I. Thigh with swelling but soft. No erythema around the dressing. Calves soft,NT. NV intact. Results & Data Vital Signs (Past 12 Hours) Vital Signs Temp Pulse Pulse Resp BP BP Pulse Ox 02/22/19 07:44 87 02/22/19 07:20 36.9 C 95 H 16 96/56 L 94 02/22/19 04:23 37 C 91 H 18 96/68 L 94 02/21/19 22:57 36.8 C 85 18 89/52 L 97 Laboratory Results Laboratory Results WBC 11.74 K/uL (4.8-10.8) H 02/22/19 06:13 RBC 2.63 M/uL (4.2-5.4) L 02/22/19 06:13 Hgb 7.9 g/dL (12.0-16.0) L 02/22/19 06:13 Hct 24.5 % (37-47) L 02/22/19 06:13 MCV 93.2 fL (80-100) 02/22/19 06:13 MCH 30.0 pg (25-34) 02/22/19 06:13 MCHC 32.2 g/dL (32-36) 02/22/19 06:13 RDW Std Deviation 46.8 fL (36.4-46.3) H 02/22/19 06:13 RDW Coeff of Adelfo 13.7 % (11.5-14.5) 02/22/19 06:13 Plt Count 217 K/uL (130-400) 02/22/19 06:13 MPV 9.7 fL (7.4-10.4) 02/22/19 06:13 Immature Gran % (Auto) 0.3 % 02/21/19 05:59 Neut % (Auto) 77.2 % 02/21/19 05:59 Lymph % (Auto) 14.4 % 02/21/19 05:59 Brule % (Auto) 8.0 % 02/21/19 05:59 Eos % (Auto) 0.0 % 02/21/19 05:59 Baso % (Auto) 0.1 % 02/21/19 05:59 Immature Gran # (Auto) 0.03 K/uL (0.00-0.02) H 02/21/19 05:59 Neut # (Auto) 7.85 K/uL (1.4-6.5) H 02/21/19 05:59 Lymph # (Auto) 1.46 K/uL (1.2-3.4) 02/21/19 05:59 Bru[place] # (Auto) 0.81 K/uL (0.11-0.59) H 02/21/19 05:59 Eos # (Auto) 0.00 K/uL (0-0.5) 02/21/19 05:59 Baso # (Auto) 0.01 K/uL (0-0.2) 02/21/19 05:59 PT 11.4 Seconds (9.0-12.0) 02/22/19 06:13 INR 1.1 (0.9-1.1) 02/22/19 06:13 Sodium 137 mmol/L (136-145) 02/22/19 06:13 Potassium 3.6 mmol/L (3.5-5.1) 02/22/19 06:13 Chloride 105 mmol/L (98-107) 02/22/19 06:13 Carbon Dioxide 29 mmol/L (21-32) 02/22/19 06:13 Anion Gap 3.0 (3-11) 02/22/19 06:13 BUN 13 mg/dl (7-18) 02/22/19 06:13 Creatinine 0.84 mg/dl (0.6-1.2) 02/22/19 06:13 Est Cr Clr Drug Dosing 52.0 ml/min 02/22/19 06:13 Est GFR ( Amer) 77.2 02/22/19 06:13 Est GFR (Non-Af Amer) 66.6 02/22/19 06:13 BUN/Creatinine Ratio 14.9 (10-20) 02/22/19 06:13 Glucose 113 mg/dl (70-99) H 02/22/19 06:13 Calcium 8.2 mg/dl (8.5-10.1) L 02/22/19 06:13 Total Bilirubin 0.7 mg/dl (0.2-1) 02/21/19 05:59 AST 21 U/L (15-37) 02/21/19 05:59 ALT 14 U/L (12-78) 02/21/19 05:59 Alkaline Phosphatase 90 U/L (45-117) 02/21/19 05:59 Total Protein 5.8 gm/dl (6.4-8.2) L D 02/21/19 05:59 Albumin 2.4 gm/dl (3.4-5.0) L 02/21/19 05:59 Globulin 3.4 gm/dl (2.5-4.0) 02/21/19 05:59 Albumin/Globulin Ratio 0.7 (0.9-2) L 02/21/19 05:59 Urine Color Yellow 02/19/19 15:30 Urine Appearance Clear (Clear) 02/19/19 15:30 Urine pH 7.5 (4.5-7.5) 02/19/19 15:30 Ur Specific [place] 1.012 (1.000-1.030) 02/19/19 15:30 Urine Protein Negative (Negative) 02/19/19 15:30 Urine Glucose (UA) Negative (Negative) 02/19/19 15:30 Urine Ketones Negative (Negative) 02/19/19 15:30 Urine Blood Negative (Negative) 02/19/19 15:30 Urine Nitrite Negative (Negative) 02/19/19 15:30 Urine Bilirubin Negative (Negative) 02/19/19 15:30 Urine Urobilinogen Negative (Negative) 02/19/19 15:30 Ur Leukocyte Esterase Negative (Negative) 02/19/19 15:30 Digoxin 0.7 ng/ml (0.8-2.0) L 02/19/19 12:18 Blood Type A Positive 02/19/19 17:31 Blood Type Recheck A Positive 02/20/19 05:23 Antibody Screen NEGATIVE 02/19/19 17:31
[2019-02-22] MEDS ORDERED: SODIUM CHLORIDE 0.9% 1000ML 1,000 ML IV ONE (08:20)
--- NOTE | 2019-02-22 08:25 | Hospitalist Progress Note ---
Date of Service February 22, 2019 Assessment & Plan (1) Fall: (2) Closed left hip fracture: This is a 78-year-old female with a PMH of chronic diastolic heart failure, persistent atrial fibrillation on anticoagulation, CKD III and other medical problems listed below who presents from home after a fall and was found to have a left femur fracture. -S/p mechanical fall slipping on ice, femur XR with evidence of significantly displaced and mildly comminuted subtrochanteric left femur fracture [facility] orthopedics Dr. Gomez performed an ORIF L Subtrochanteric [id number]-[id number] or home in 1-2 days -INR supratherapeutic at 3.3- last dose taken yesterday at 1600. Given 2.5mg PO Vitamin K for reversal with INR recheck this evening at 2100 -Pre-op: history of persistent A fib - currently rate controlled at 85 bpm, CXR with cardiomegaly, no acute changes Warfarin follow INR, H&H (3) CHI (closed head injury): Does not remember whether or not she hit her head but felt that patient was briefly confused following fall -CT head, cervical spine CT without acute abnormalities -Currently A&O x4. Monitor closely, neuro checks (4) Persistent atrial fibrillation: Rate controlled -Continue Toprol, Digoxin -Coumadin per INR (5) Chronic diastolic heart failure: Appears euvolemic clinically, on CXR -Monitor volume status closely -Hold Lasix 20mg Q2D (6) Hiatal hernia: Continue PPI, elevate head of bed DVT Ppx: SCDs, Warfarin, SC Heparin Code status: FULL PCP: Leonel García Dispo: PCU. Discharge planning ordered. Labs Checked ROS-No Headache, No Visual Changes, No Nausea, No Vomiting, No Fever, No Chills, No Neck Pain or Stiffness, No Chest Pain, No Palpitations, No SOB, No BILLINGSLEY, No Cough, No Sputum, No Wheezing, No Abdominal Pain, No Diarrhea, No Hematemesis, No Hemoptysis, No Unexpected Weight Loss, No Flank pain, No Melena, No Hematochezia, No Frequency, No Urgency, No Burning, No Hematuria, No Rashes, No Diaphoresis. Appetite is Normal Physical Exam Gen-AAO x 3, NAD, Afebrile Head-NCAT, EOMI, PERRLA, Anicteric Sclera, No Posterior Pharyngeal Erythema Neck-Supple, No JVD, No Thyromegaly, No Masses, No LAD, No Bruits Lungs-Clear to Auscultation Bilaterally, No Rales, No Rhonchi, No Wheezing, No Crepitus Chest-Irreg/Irreg, No S4, +S1, +S2, No S3, No Murmurs, No Rubs, No Gallops, + Ectopy Abdomen-Soft, Bowel Sounds Present, Non Tender, Non Distended, No Hepatomegaly, No Splenomegaly, No Palpable Masses, No Rebound, No Rigidity, No Guarding Musculoskeletal-Full Range of Motion Bilaterally, No CVAT Extremities-No Cyanosis, No Clubbing, No Edema ++SCDs Nuero-Cranial Nerves II-XII grossly intact, Motor WNL, DTRs WNL, Strength WNL, Non Focal Psych-Normal Mood Results & Data Vital Signs (Past 12 Hours) Vital Signs Temp Pulse Pulse Resp BP BP Pulse Ox 02/22/19 08:11 92 H 94/61 L 95/61 L 02/22/19 07:44 87 02/22/19 07:20 36.9 C 95 H 16 96/56 L 94 02/22/19 04:23 37 C 91 H 18 96/68 L 94 02/21/19 22:57 36.8 C 85 18 89/52 L 97 (1) Fall Encounter type: initial encounter Qualified Code(s): W19.XXXA - Unspecified fall, initial encounter (2) Closed left hip fracture Encounter type: initial encounter Qualified Code(s): S72.002A - Fracture of unspecified part of neck of left femur, initial encounter for closed fracture (3) CHI (closed head injury) Encounter type: initial encounter Qualified Code(s): S09.90XA - Unspecified injury of head, initial encounter
[2019-02-22] MEDS ORDERED: KETOROLAC TROMETHAMINE 15 MG/ML VIAL IV ONE (08:33)
[2019-02-22] MEDS: METOPROLOL SUCC 50MG EXT REL TAB PO SCH (09:03)
[2019-02-22] MEDS: FOLIC ACID 400 MCG TAB PO SCH (12:51)
[2019-02-22] MEDS: WARFARIN SOD 4 MG TAB PO SCH (16:19)
--- NOTE | 2019-02-22 17:27 | Cardiology Consultation ---
Date of Consultation February 22, 2019 Assessment & Plan (1) Persistent atrial fibrillation: (2) Chronic diastolic heart failure: (3) Anemia: (4) Hypotension: 78-year-old female status post left-sided open reduction internal fixation of the subtrochanteric femur fracture. Postoperative anemia noted. Borderline asymptomatic hypotension noted throughout hospitalization. Recommend holding lisinopril to allow for treatment with beta-roberta therapy. I have changed the hold parameter on her metoprolol to ensure she receives her daily dose. Appears compensated and euvolemic from a heart failure perspective. Typically takes furosemide every other day in the outpatient setting. No indication for diuresis at this time. Thank you for allowing to participate in the care of your patient. History of Present Illness Reason for Consultation: Atrial fibrillation, hypotension Requesting Physician: Dr. Crow Attending Physician: Richard Crow, History of Present Illness 78-year-old female admitted secondary to mechanical fall with left-sided subtrochanteric femur fracture. Pubic surgery performed 02/20/2019. Borderline hypotension noted. Heart rates controlled on metoprolol. Patient seen and examined at the bedside. Denies chest pain, shortness of breath, palpitations, lightheadedness, dizziness, syncope, or near syncope. She is not on telemetry monitoring. Hip discomfort controlled. No orthopnea or paroxysmal nocturnal dyspnea. Reports being "in atrial fibrillation all the time". Coumadin restarted. Receiving subcutaneous heparin for DVT prophylaxis as well as sequential compression devices. She offers no concerns/complaints at this time. and daughter present at bedside. Allergies Allergy/AdvReac Type Severity Reaction Status Date / Time No Known Allergies Allergy Unverified 02/19/19 14:12 Home Medications Home Medications Medication Instructions Recorded Confirmed Type atorvastatin 20 mg PO HS 02/19/19 02/19/19 History digoxin 125 mcg PO MOTUWETHFR@2100 02/19/19 02/19/19 History furosemide 20 mg PO Q2D 02/19/19 02/19/19 History lisinopril 2.5 mg PO QAM 02/19/19 02/19/19 History loratadine [Claritin] 10 mg PO HS PRN 02/19/19 02/19/19 History magnesium oxide 400 mg PO HS 02/19/19 02/19/19 History metoprolol succinate 100 mg PO QAM 02/19/19 02/19/19 History multivit with min-folic acid [One 0.4 mg PO QDL 02/19/19 02/19/19 History Daily Womens 50 Plus] pantoprazole 40 mg PO BID 02/19/19 02/19/19 History potassium chloride [Klor-Con M20] 20 meq PO Q2D 02/19/19 02/19/19 History warfarin 1.25 mg PO SUTUWETHSA@1600 02/19/19 02/19/19 History warfarin 2.5 mg PO MOFR@1600 02/19/19 02/19/19 History Patient History Medical History Anemia Chronic diastolic heart failure (Chronic) CKD (chronic kidney disease), stage III Dementia Hiatal hernia (Chronic) Mild aortic regurgitation Mild mitral valve regurgitation Mild tricuspid valve regurgitation Persistent atrial fibrillation (Chronic) Surgical History No pertinent past surgical history Family History Mother Brain cancer Other Atrial fibrillation Social History Preferred Language: Macedonian Communication Ability: Effective Beliefs That Will Affect Care: None Current Living Situation: Spouse Other Information That Helps Us Care for You: No Feels Safe at Home: Yes Safety Concerns: Feels Safe At This Time Smoking Status: Former smoker Hx Alcohol Use: No Hx Substance Use: No Review of Systems Review of Systems: All systems reviewed & are unremarkable except as noted in HPI & below Physical Exam Constitutional: well developed, well nourished and average body habitus; no acute distress Respiratory: normal respiratory effort, lungs clear to auscultation Cardiovascular: Rate/Rhythm: + irregularly irregular Heart Sounds: normal S1 and normal S2; no murmur and no cardiac rub Vessels: radial pulses present; no JVD Extremities: no edema Gastrointestinal (Abdomen): Inspection/Auscultation: abdomen normal to inspection and normal bowel sounds; abdomen not distended Percussion/Palpation: abdomen soft; abdomen nontender, no guarding and abdomen not rigid Skin: no rashes, warm and dry Neurologic: CN's II-XI intact bilaterally and moves all extremities; no focal motor deficits Psychiatric: A+Ox3, euthymic affect Results & Data Vital Signs (Past 12 Hours) Vital Signs Temp Pulse Pulse Resp BP BP Pulse Ox 02/22/19 15:33 36.4 C L 82 16 97/65 L 96 02/22/19 11:55 36.6 C 98 H 16 92/58 L 92 02/22/19 08:11 92 H 94/61 L 95/61 L 02/22/19 07:44 87 02/22/19 07:20 36.9 C 95 H 16 96/56 L 94
[2019-02-22] MEDS: ATORVASTATIN 20 MG TAB PO SCH (20:05)
[2019-02-22] MEDS: MAGNESIUM OXIDE 400 MG TAB PO SCH (20:05)
[2019-02-22] MEDS: DOCUSATE SODIUM/SENNA 50/8.6MG TAB PO SCH (20:13)
[2019-02-23] MEDS: HEPARIN SOD 5,000 UNIT/0.5 ML VIAL SQ SCH ×2 (05:55→18:04)
[2019-02-23 07:31] LABS: Hematocrit (blood only) 24.2 % (37-47); Mean Corpuscular Hemoglobin 30.8 pg (25-34); Mean Corpuscular Hgb Conc 33.1 g/dL (32-36); Mean Corpuscular Volume 93.1 fL (80-100); Mean Platelet Volume 9.6 fL (7.4-10.4); Platelet Count 233 K/uL (130-400); RDW Coefficient of Variation 13.7 % (11.5-14.5); RDW Standard Deviation 46.1 fL (36.4-46.3); White Blood Count 10.14 K/uL (4.8-10.8)
[2019-02-23 07:38] LABS: INR 1.4 (0.9-1.1); Prothrombin Time 14.2 Seconds (9.0-12.0)
--- NOTE | 2019-02-23 07:41 | Anesthesiology Progress Note ---
Date of Service February 23, 2019 Anesthesia Post Procedure Vital Signs Vital Signs: Temp Pulse Pulse Resp BP BP Pulse Ox 02/23/19 06:57 36.8 C 108 H 18 114/76 95 02/23/19 04:51 36.9 C 107 H 15 99/53 L 90 02/23/19 01:23 89 02/22/19 23:26 36.7 C 99 H 17 101/64 94 02/22/19 20:56 37.0 C 99 H 15 101/66 95 02/22/19 17:00 98 H 02/22/19 15:33 36.4 C L 82 16 97/65 L 96 02/22/19 11:55 36.6 C 98 H 16 92/58 L 92 02/22/19 08:11 92 H 94/61 L 95/61 L 02/22/19 07:44 87 Pain Intensity Left Leg: Pain Intensity: 3 Notes Mental Status: alert / awake / arousable and participated in evaluation Patient Amnestic to Procedure: Yes Nausea / Vomiting: adequately controlled Pain: adequately controlled Airway Patency, RR, SpO2: stable & adequate BP & HR: stable & adequate Hydration State: stable & adequate Anesthetic Complications: no major complications apparent and Pt Satisfied with anesthetic care
[2019-02-23] MEDS: POTASSIUM CHLORIDE 20 MEQ TABCR PO SCH (08:00)
[2019-02-23] MEDS: PANTOprazole 40 MG TAB PO SCH ×2 (08:00→20:02)
[2019-02-23] MEDS: METOPROLOL SUCC 50MG EXT REL TAB PO SCH (08:01)
[2019-02-23] MEDS: ACETAMINOPHEN 500 MG TAB PO SCH ×4 (08:03→20:01)
[2019-02-23 08:10] LABS: BUN Creatinine Ratio 19.8 (10-20); Calcium 8.4 mg/dl (8.5-10.1); Creatinine Clr Calc Pharmacy 58.2 ml/min; Est GFR (African American) 88.5; Est GFR (Non-African American) 76.3; Potassium 3.4 mmol/L (3.5-5.1)
[2019-02-23] MEDS: OXYCODONE HCL IR 5 MG TAB (IMMEDIATE RELEASE) PO PRN ×2 (09:16→22:52)
[2019-02-23] MEDS: KETOROLAC TROMETHAMINE 15 MG/ML VIAL IV SCH ×3 (09:17→22:13)
[2019-02-23] MEDS ORDERED: POTASSIUM CHLORIDE 20 MEQ TABCR PO STA (09:34)
[2019-02-23] MEDS: FOLIC ACID 400 MCG TAB PO SCH (11:40)
[2019-02-23] MEDS: WARFARIN SOD 4 MG TAB PO SCH (15:37)
--- NOTE | 2019-02-23 16:02 | Orthopedic Progress Note ---
Date of Service February 23, 2019 Assessment & Plan (1) Displaced subtrochanteric fracture of left femur: Postop day 3 status post ORIF left subtrochanteric femur fracture with long TFN PT/OT protocols. Partial weightbearing DVT prophylaxis- Coumadin restarted. Heparing SQ bridging as per Med Service Pain management-oxycodone, hydromorphone. DC planning-depending on how her therapy progresses, she might need a stay at [facility]. Ortho will sign off, please call with questions. (2) Anemia: Hemoglobin is 8.1 this morning. Anemia most likely due to fracture and ORIF. Currently she is asymptomatic. Transfusion criteria as noted by Dr. Crow. Subjective Post Operative Progress Note Patient seen sitting up in bed, comfortable, denies complaints, pain well controlled, no acute issues. Denies F/C/N/V/SOP/CP. Review of Systems Review of Systems: All systems reviewed & are unremarkable except as noted in HPI & below Constitutional: as per Subjective / HPI Physical Exam Physical Exam: LLE NVSI +EHL/FHL/TA/GS SILT grossly, +2 DP pulse, compartments soft NT, dressing cdi. Constitutional: WD/WN, vitals as above Results & Data Vital Signs (Past 12 Hours) Vital Signs Temp Pulse Pulse Resp BP BP Pulse Ox 02/23/19 14:50 36.7 C 85 20 91/59 L 95 02/23/19 11:47 36.6 C 93 H 20 101/66 96 02/23/19 07:45 124 H 02/23/19 06:57 36.8 C 108 H 18 114/76 95 02/23/19 04:51 36.9 C 107 H 15 99/53 L 90
--- NOTE | 2019-02-23 16:49 | Hospitalist Progress Note ---
Date of Service February 23, 2019 Assessment & Plan (1) Fall: (2) Closed left hip fracture: Patient is a 78 yr female with H/O Chronic diastolic heart failure, persistent atrial fibrillation on anticoagulation, CKD III and other medical problems listed below who presents from home after a fall and was found to have a left femur fracture. Left hip fracture S/p mechanical fall Femur XR with evidence of significantly displaced and mildly comminuted subtrochanteric left femur fracture S/P ORIF POD #3 Pain control Bowel regimen for constipation Appreciate Orthopedics help On Coumadin for anticoagulation Needs Rehab placement Needs FU with Orthopedics upon discharge (3) CHI (closed head injury): Does not remember whether or not she hit her head but felt that patient was briefly confused following fall CT head, cervical spine CT without acute abnormalities Monitor (4) Persistent atrial fibrillation: Rate controlled Continue Toprol, Digoxin Coumadin for anticoagulation Monitor INR:1.4 (5) Chronic diastolic heart failure: Appears euvolemic Monitor volume status Resume home lasix as able-- On Lasix 20mg Q2D (6) Hiatal hernia: Continue PPI DVT Px: Warfarin Heparin SQ until INR is therapeutic Code status: FULL PCP: Leonel García Disposition: Rehab Subjective Patient is seen and examined at bedside Complains of mild pain at surgical site with ambulation Denies any chest pain, shortness of breath, dizziness, nausea, abdominal pain Family at bedside Review of Systems Review of Systems: All systems reviewed & are unremarkable except as noted in HPI & below Physical Exam Physical Exam: Physical Exam: Vitals signs as noted above General Appearance:Moderately built and nourished, no apparent distress Head: normocephalic, Atraumatic Eyes: normal inspection, EOMI Neck: supple, Trachea midline Respiratory/Chest: Normal breath sounds, CTA Cardiovascular: Irregularly Irregular, No murmur Abdomen/GI:Soft, Non tender, Bowel sounds present Extremities/Musculoskelatal:normal inspection, no edema, L hip surgical site in dressing Neurologic/Psych:AAOX3, grossly no focal neurological deficits Skin: normal color, warm Results & Data Vital Signs (Past 12 Hours) Vital Signs Temp Pulse Pulse Resp BP BP Pulse Ox 02/23/19 14:50 36.7 C 85 20 91/59 L 95 02/23/19 11:47 36.6 C 93 H 20 101/66 96 01/13/20 07:45 124 H 02/23/19 06:57 36.8 C 108 H 18 114/76 95 02/23/19 04:51 36.9 C 107 H 15 99/53 L 90 Laboratory Results Short CBC 02/23/19 Range/Units 07:19 WBC 10.14 (4.8-10.8) K/uL Hgb 8.0 L (12.0-16.0) g/dL Hct 24.2 L (37-47) % Plt Count 233 (130-400) K/uL BMP 02/23/19 07:19 Sodium 138 Potassium 3.4 L Chloride 104 Carbon Dioxide 28 BUN 15 Creatinine 0.75 Glucose 104 H Calcium 8.4 L (1) Fall Encounter type: initial encounter Qualified Code(s): W19.XXXA - Unspecified fall, initial encounter (2) Closed left hip fracture Encounter type: initial encounter Qualified Code(s): S72.002A - Fracture of unspecified part of neck of left femur, initial encounter for closed fracture (3) CHI (closed head injury) Encounter type: initial encounter Qualified Code(s): S09.90XA - Unspecified injury of head, initial encounter
[2019-02-23] MEDS: ATORVASTATIN 20 MG TAB PO SCH (20:02)
[2019-02-23] MEDS: MAGNESIUM OXIDE 400 MG TAB PO SCH (20:02)
[2019-02-23] MEDS: DIGOXIN 0.125 MG TAB PO SCH (20:03)
[2019-02-23] MEDS: DOCUSATE SODIUM/SENNA 50/8.6MG TAB PO SCH (20:04)
[2019-02-24] MEDS: KETOROLAC TROMETHAMINE 15 MG/ML VIAL IV SCH (04:49)
[2019-02-24] MEDS: HEPARIN SOD 5,000 UNIT/0.5 ML VIAL SQ SCH (04:49)
[2019-02-24] MEDS: OXYCODONE HCL IR 5 MG TAB (IMMEDIATE RELEASE) PO PRN (07:07)
[2019-02-24] MEDS: METOPROLOL SUCC 50MG EXT REL TAB PO SCH (07:10)
[2019-02-24] MEDS: PANTOprazole 40 MG TAB PO SCH ×2 (08:23→21:32)
[2019-02-24] MEDS: ACETAMINOPHEN 500 MG TAB PO SCH ×4 (08:26→21:30)
[2019-02-24 08:28] LABS: INR 2.6 (0.9-1.1); Prothrombin Time 24.6 Seconds (9.0-12.0)
[2019-02-24 08:59] LABS: BUN Creatinine Ratio 22.6 (10-20); Calcium 8.5 mg/dl (8.5-10.1); Creatinine Clr Calc Pharmacy 49.6 ml/min; Est GFR (Non-African American) 64.7; Potassium 3.6 mmol/L (3.5-5.1)
[2019-02-24] MEDS: FOLIC ACID 400 MCG TAB PO SCH (12:40)
[2019-02-24] MEDS: LOPERAMIDE HCL 2 MG CAP PO PRN ×3 (13:42→21:30)
--- NOTE | 2019-02-24 14:55 | Hospitalist Progress Note ---
Date of Service February 24, 2019 Assessment & Plan (1) Fall: (2) Closed left hip fracture: Patient is a 78 yr female with H/O Chronic diastolic heart failure, persistent atrial fibrillation on anticoagulation, CKD III and other medical problems listed below who presents from home after a fall and was found to have a left femur fracture. Left hip fracture S/p mechanical fall Femur XR with evidence of significantly displaced and mildly comminuted subtrochanteric left femur fracture S/P ORIF POD #4 Acute blood loss anemia--Post OP Pain is controlled Bowel regimen for constipation as needed Appreciate Orthopedics help On Coumadin for anticoagulation Waiting for Rehab placement Needs FU with Orthopedics upon discharge Partial weightbearing as tolerated (3) CHI (closed head injury): Does not remember whether or not she hit her head but felt that patient was briefly confused following fall CT head, cervical spine CT without acute abnormalities Monitor (4) Persistent atrial fibrillation: Rate controlled Continue Toprol, Digoxin Coumadin for anticoagulation Monitor INR:2.6 Adjust coumadin dose as needed (5) Chronic diastolic heart failure: Appears euvolemic Monitor volume status Resume home lasix as able-- On Lasix 20mg Q2D (6) Hiatal hernia: Continue PPI DVT Px: Warfarin Code status: FULL PCP: Leonel García Disposition: Plan to discharge to Rehab facility when accepted Subjective Patient is seen and examined at bedside States having loose BM due to stool softeners used for constipation Feels tired today No other complaints Pain at Incisional site is controlled Denies any chest pain, SOB, dizziness, nausea, abdominal pain Family at bedside Waiting for Rehab placement Review of Systems Review of Systems: All systems reviewed & are unremarkable except as noted in HPI & below Physical Exam Physical Exam: Physical Exam: Vitals signs as noted above General Appearance:Moderately built and nourished, no apparent distress Head: normocephalic, Atraumatic Eyes: normal inspection, EOMI Neck: supple, Trachea midline Respiratory/Chest: Normal breath sounds, CTA Cardiovascular: Irregularly Irregular, No murmur Abdomen/GI:Soft, Non tender, Bowel sounds present Extremities/Musculoskelatal:normal inspection, no edema, L hip surgical site in dressing Neurologic/Psych:AAOX3, grossly no focal neurological deficits Skin: normal color, warm Results & Data Vital Signs (Past 12 Hours) Vital Signs Temp Pulse Pulse Resp BP Pulse Ox 02/24/19 11:39 36.8 C 102 H 18 112/71 95 02/24/19 07:46 101 H 02/24/19 07:24 36.5 C 110 H 20 106/72 95 Laboratory Results BMP 02/24/19 07:58 Sodium 136 Potassium 3.6 Chloride 105 Carbon Dioxide 26 BUN 20 H Creatinine 0.86 Glucose 121 H Calcium 8.5 (1) Fall Encounter type: initial encounter Qualified Code(s): W19.XXXA - Unspecified fall, initial encounter (2) Closed left hip fracture Encounter type: initial encounter Qualified Code(s): S72.002A - Fracture of unspecified part of neck of left femur, initial encounter for closed fracture (3) CHI (closed head injury) Encounter type: initial encounter Qualified Code(s): S09.90XA - Unspecified injury of head, initial encounter
[2019-02-24] MEDS: WARFARIN SOD 1 MG TAB PO SCH (16:34)
[2019-02-24] MEDS: LORazepam 0.5 MG/1 ML VIAL IV PRN (17:13)
[2019-02-24] MEDS: DIGOXIN 0.125 MG TAB PO SCH (21:30)
[2019-02-24] MEDS: ATORVASTATIN 20 MG TAB PO SCH (21:31)
[2019-02-24] MEDS: MAGNESIUM OXIDE 400 MG TAB PO SCH (21:33)
[2019-02-25] MEDS: LORazepam 0.5 MG/1 ML VIAL IV PRN (04:05)
[2019-02-25] MEDS: POTASSIUM CHLORIDE 20 MEQ TABCR PO SCH (08:11)
[2019-02-25] MEDS: ACETAMINOPHEN 500 MG TAB PO SCH ×3 (08:11→16:22)
[2019-02-25] MEDS: METOPROLOL SUCC 50MG EXT REL TAB PO SCH (08:12)
[2019-02-25] MEDS: PANTOprazole 40 MG TAB PO SCH (08:12)
[2019-02-25 08:39] LABS: Hematocrit (blood only) 26.2 % (37-47); Hemoglobin 8.5 g/dL (12.0-16.0)
[2019-02-25 08:55] LABS: INR 3.3 (0.9-1.1)
[2019-02-25] MEDS: FOLIC ACID 400 MCG TAB PO SCH (11:52)
--- NOTE | 2019-02-25 14:54 | Hospitalist Progress Note ---
Date of Service February 25, 2019 Assessment & Plan (1) Fall: (2) Closed left hip fracture: Patient is a 78 yr female with H/O Chronic diastolic heart failure, persistent atrial fibrillation on anticoagulation, CKD III and other medical problems listed below who presents from home after a fall and was found to have a left femur fracture. Left hip fracture S/p mechanical fall Femur XR with evidence of significantly displaced and mildly comminuted subtrochanteric left femur fracture S/P ORIF POD #5 Acute blood loss anemia--Post OP Pain is controlled Bowel regimen for constipation as needed Appreciate Orthopedics help On Coumadin for anticoagulation Needs FU with Orthopedics upon discharge Partial weightbearing as tolerated Plan to discharge to [facility] today Continue PT/OT (3) CHI (closed head injury): Does not remember whether or not she hit her head but felt that patient was briefly confused following fall CT head, cervical spine CT without acute abnormalities Monitor (4) Persistent atrial fibrillation: Rate controlled Continue Toprol, Digoxin Coumadin for anticoagulation Monitor INR:3.3 Adjust coumadin dose as needed (5) Chronic diastolic heart failure: Appears euvolemic Monitor volume status Resume home lasix as able-- On Lasix 20mg Q2D (6) Hiatal hernia: Continue PPI DVT Px: Warfarin Code status: FULL PCP: Leonel García Disposition: [facility] Subjective Patient is seen and examined at bedside Doing well today Diarrhea resolved Had physical therapy earlier today Left hip pain at surgical site is controlled Had transient muscle spasms which resolved Plan to be discharged to rehab facility today Denies any chest pain, SOB, dizziness, nausea, abdominal pain Review of Systems Review of Systems: All systems reviewed & are unremarkable except as noted in HPI & below Physical Exam Physical Exam: Physical Exam: Vitals signs as noted above General Appearance:Moderately built and nourished, no apparent distress Head: normocephalic, Atraumatic Eyes: normal inspection, EOMI Neck: supple, Trachea midline Respiratory/Chest: Normal breath sounds, CTA Cardiovascular: Irregularly Irregular, No murmur Abdomen/GI:Soft, Non tender, Bowel sounds present Extremities/Musculoskelatal:normal inspection, no edema, L hip surgical site in dressing Neurologic/Psych:AAOX3, grossly no focal neurological deficits Skin: normal color, warm Results & Data Vital Signs (Past 12 Hours) Vital Signs Temp Pulse Pulse Resp BP BP Pulse Ox 02/25/19 12:32 96 02/25/19 11:33 36.6 C 58 L 20 108/57 L 95 02/25/19 08:00 99 H 02/25/19 07:08 36.9 C 94 H 16 117/77 95 02/25/19 03:30 36.9 C 98 H 18 115/78 96 Laboratory Results Short CBC 02/25/19 Range/Units 08:21 Hgb 8.5 L (12.0-16.0) g/dL Hct 26.2 L (37-47) % (1) Fall Encounter type: initial encounter Qualified Code(s): W19.XXXA - Unspecified fall, initial encounter (2) Closed left hip fracture Encounter type: initial encounter Qualified Code(s): S72.002A - Fracture of u nspecified part of neck of left femur, initial encounter for closed fracture (3) CHI (closed head injury) Encounter type: initial encounter Qualified Code(s): S09.90XA - Unspecified injury of head, initial encounter
--- NOTE | 2019-02-25 15:05 | Discharge Summary ---
Date of Service February 25, 2019 Admission HPI Per Admitting Provider This is a 78-year-old female with a PMH of chronic diastolic heart failure, persistent atrial fibrillation on anticoagulation, CKD III and other medical problems listed below who presents from home after a fall. Patient was walking to her car in the driveway when she slipped and fell on the ice, landing on her left side. Is not sure if she hit her head or not but did not lose consciousness. Was unable to get anyone's attention so she crawled to her front door and rang the doorbell and her called EMS. Patient states the pain is severe with any type of movement but minimal at rest. Denies any numbness or paresthesias distal to area of pain in left upper leg/hip. Denies any fever, chills, lightheadedness, visual changes, chest pain, palpitations, shortness of breath, nausea, vomiting, abdominal pain, dysuria, diarrhea or constipation. Is on Coumadin for persistent atrial fibrillation, last taken yesterday around 1600. In ED, patient found to be hypertensive initially with BP 165/117. CT head, cervical spine CT without acute abnormalities. CXR with cardiomegaly. Left femur x-ray with significantly displaced and mildly comminuted subtrochanteric left femur fracture. Denies any previous surgical history. Admission Exam Per Admitting Provider Physical Exam Physical Exam: General Appearance: WD/WN, vitals as above, NAD, lying in bed, grimacing in pain with any movement, conversing easily Head: normocephalic, atraumatic Eyes: normal inspection, PERRL, conjunctivae normal, anicteric sclerae ENT: external ear and nose normal, oropharynx normal Neck: trachea midline, no thyromegaly normal visual inspection Respiratory: normal respiratory effort, lungs clear to auscultation, no wheeze, rales, rhonchi. Normal insp/exp effort, no accessory muscle use Cardiovascular: irregular rate & rhythm, no murmur appreciated, normal peripheral pulses. Vessels: no JVD or carotid bruit Chest: normal inspection of chest Abdomen/GI: normal bowel sounds, soft, nontender, no hepatosplenomegaly Extremities/Musculoskelatal: + LLE externally rotated and shortened. Tenderness to palpation of lateral left thigh. No cyanosis or clubbing, extremities motor strength 5/5 Neurologic: PERRL, EOMI, accommodation nl, no face palsy, no dysarthria, CN's II-XI intact bilaterally and moves all extremities Psychiatric: A+Ox3, euthymic affect Skin: no rashes, normal color, warm/dry Principal Diagnosis Left Subtrochanteric Femur Fracture Atrial fibrillation Mechanical Fall Discharge Data Allergies Allergy/AdvReac Type Severity Reaction Status Date / Time No Known Allergies Allergy Unverified 02/19/19 14:12 Consultations 02/19/19 13:54 ED Decision to Admit Stat 02/19/19 15:10 Consult Orthopedic Surgery Routine 02/19/19 17:12 Consult Anesthesiology Routine Consult Case Management - Discharge Planning Routine 02/22/19 13:16 Consult Cardiology Routine Procedures Performed Operation Date: 02/20/19 07:00 Actual Procedures p Open Reduction Internal Fixation Left Subtronchateric Femur Fracture(Left) - Raheel Gomez MD Ordered Studies 02/19/19 12:22 CT cervical spine wo con Stat CT head/brain wo con Stat 02/20/19 FL fluoroscopy <1hr Routine FL hip LT 2-3V Routine Head CT: No acute intracranial abnormality. Neck CT: No fractures within the cervical spine. Degenerative change. CXR: Cardiomegaly. No other convincing evidence of acute cardiopulmonary disease. Left femur x-ray Significantly displaced and mildly comminuted subtrochanteric left femur fracture. Hospital Course (1) Fall: (2) Closed left hip fracture: Patient is a 78 yr female with H/O Chronic diastolic heart failure, persistent atrial fibrillation on anticoagulation, CKD III and other medical problems listed below who presents from home after a fall and was found to have a left femur fracture. Left hip fracture S/p mechanical fall Femur XR with evidence of significantly displaced and mildly comminuted subtrochanteric left femur fracture S/P ORIF POD #5 Acute blood loss anemia--Post OP Pain is controlled Bowel regimen for constipation as needed Appreciate Orthopedics help On Coumadin for anticoagulation Needs FU with Orthopedics upon discharge Partial weightbearing as tolerated Plan to discharge to [facility] today Continue PT/OT (3) CHI (closed head injury): Does not remember whether or not she hit her head but felt that patient was briefly confused following fall CT head, cervical spine CT without acute abnormalities Monitor (4) Persistent atrial fibrillation: Rate controlled Continue Toprol, Digoxin Coumadin for anticoagulation Monitor INR:3.3 Adjust coumadin dose as needed (5) Chronic diastolic heart failure: Appears euvolemic Monitor volume status Resume home lasix as able-- On Lasix 20mg Q2D (6) Hiatal hernia: Continue PPI DVT Px: Warfarin Code status: FULL PCP: Leonel García Disposition: [facility] Total Time Total Time Spent Total Time Spent (In Minutes): 38 Discharge Plan Discharge Items Patient Disposition: Transfer Inpatient Rehab Fac Reason For Visit: LEFT FEMUR FRACTURE Discharge Diagnosis: Left Subtrochanteric Femur Fracture Atrial fibrillation Mechanical Fall Activity: Per Instructions section Exercise/Sports: Gradually increase as tolerated Weightbearing: Left partial Weightbearing Comment: with walker or crutches Non-emergency contact: Primary Care Provider and Surgeon Call non-emergency contact if: you have any medication questions, your symptoms worsen, your pain is not controlled, your pain is worsening, your pain is unusual for you, you have a fever, your temperature is above 101.5, your wound has increased redness and your wound has increased drainage Follow-up/Referrals: Liss Garíca MD [Primary Care Provider] - Diet: Heart Healthy [place] Attending Provider Instructions: Follow-up with your primary care physician Dr. Liss García in 1 week after discharge from rehab facility Follow-up with your orthopedic surgeon as advised Seek immediate medical attention if your symptoms reoccur or worsen Take Coumadin 1 mg today. Your PT/INR is 3.3 today 02/25/19 (Reduced from your home dose) Get PT/INR check tomorrow (02/26/19) and physician at rehab facility to adjust your Coumadin dosing according to your PT/INR results. 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 You are to ambulate with a walker or crutches for approximately 6 weeks. B. You are PARTIAL WEIGHT BEARING on your operative lower extremity for at least 6 weeks. C. Wear low heeled shoes with non-slip soles D. Be sure that your floors are free of things that could trip you throw rugs, electrical cords, and small objects. Avoid wet and waxed floors, especially with crutches/walker/cane. E. Try to walk several times a day with rest periods between. F. You may shower 48 hours after surgery and get the incision area wet, but DO NOT soak or submerge incision area in water. (No baths, swimming pools, hot tubs) G. You may have a large, band-aid like dressing over your incision (Aquacel). This will remain on your incision for 7 days, and then can be removed. You CAN shower with this on. If incision is leaking through the dressing, please call the office . H. Do NOT apply soap or any ointment/lotions directly over incision. I. You may use ice as needed to operative site. SPECIAL CARE INSTRUCTIONS: VERY IMPORTANT TO READ AND REVIEW A. You may be at risk for phlebitis or blood clots. a. Wear surgical stockings (CLEVE hose) for 2 weeks after surgery to improve circulation and reduce swelling. b. YOUR COUMADIN HAS BEEN RESTARTED. YOU MAY BE ON A SECOND BLOOD THINNER WHILE ON COUMADIN UNTIL YOUR INR BECOMES THERAPEUTIC. THIS SHOULD BE DISCONTINUED ONCE YOUR INR IS THERAPEUTIC. c. If you are on Coumadin- you will have daily/weekly blood work to monitor your levels. This will be done by either your family physician/water resource project manager (if you are on Coumadin chronically) versus your orthopedic surgeon. Expect a phone call the day of or the day after your blood work is drawn to adjust your dose accordingly. B. There are a few signs you need to watch for after you are home. Call [facility] at [phone] if you experience any of the following: a. If you have a temperature of 101 degrees or higher. b. Sudden increase in pain in your hip not relieved by rest or pain medication. c. Any fluid or drainage from the incision; redness of the incision. d. Shortness of breath or chest pain. C. Call your physician if: a. Temperature is greater than 101 degrees (F). b. Pain is not relieved by prescribed pain medications. c. Increase drainage or redness from incision. d. Unanswered questions or concerns. D. Pain Medication: a. You will be prescribed pain medication upon discharge that should last till your first post-operative appointment. b. If you experience nausea and/or skin rash, discontinue this medication and contact our office for an alternative medication. c. Caution- narcotic pain medication can cause constipation. FOLLOW UP VISIT: Please call [facility] at [phone] to schedule a follow up appointment with Dr. Gomez in 10-14 days from the date of your surgery date. Pending Studies at Discharge: No Stand-Alone Forms: My [facility] Skilled Items Patient informed of condition?: Yes DNR: No Discharge Level of Care: Acute rehab Communicable Disease: No Discharge Prognosis: Improving Lines: None Urinary Catheter: No Medications and DC Order Prescriptions: New oxycodone 5 mg Tablet 5 mg PO Q4H PRN (Reason: pain) Qty: 0 RF: 0 Continued metoprolol succinate 100 mg tablet extended release 24 hr 100 mg PO QAM RF: 0 warfarin 2.5 mg tablet 1.25 mg PO SUTUWETHSA@1600 RF: 0 warfarin 2.5 mg tablet 2.5 mg PO MOFR@1600 RF: 0 potassium chloride [Klor-Con M20] 20 mEq tablet,ER particles/crystals 20 meq PO Q2D RF: 0 pantoprazole 40 mg tablet,delayed release (DR/EC) 40 mg PO BID RF: 0 digoxin 125 mcg (0.125 mg) tablet 125 mcg PO MOTUWETHFR@2100 RF: 0 furosemide 20 mg tablet 20 mg PO Q2D RF: 0 lisinopril 2.5 mg tablet 2.5 mg PO QAM RF: 0 loratadine [Claritin] 10 mg Tablet 10 mg PO HS PRN (Reason: Allergy Symptoms) RF: 0 One Daily Womens 50 Plus 0.4 mg Tablet 0.4 mg PO QDL RF: 0 atorvastatin 20 mg tablet 20 mg PO HS RF: 0 magnesium oxide 400 mg (241.3 mg magnesium) Tablet 400 mg PO HS RF: 0 Discharge Orders: Discharge Order (Routine); Ordered 02/25/19 Ordered By: Cyrus Still Admission Data Admit Date/Time: 02/19/19 15:11 Attending Provider: Cyrus Still Admit Provider: Conrado Marcelino Primary Care Provider: Liss García Other Providers: Conrado Marcelino ; Leonardo Hart ; Raymundo Banks ; Abrahan Greenfield ; [facility] ; [facility] Other Interventions: Discharge Summary Assessment (RN) Last Done: 02/25/19 15:53 DC Date/Time DO NOT enter until pt leaves facility: 02/25/19 17:00
[2019-02-25] MEDS: WARFARIN SOD 1 MG TAB PO SCH (16:22)
[2019-02-25] MEDS: OXYCODONE HCL IR 5 MG TAB (IMMEDIATE RELEASE) PO PRN (16:53)
== END 2019-02-25 17:00 | DRG 481 ==
LOC: ED 11:59 → SUATTDRO 15:11 → 2E 15:11 → 2N 02-21 08:58 → 2W 02-21 19:55